=== PATIENT | female | born 1965 | race Caucasian/White ===

== ENCOUNTER 2017-12-10 12:09 | Inpatient (IN) | payer MEDICAID ==
[~2017-12-10] VITALS: Ht 175.3 cm; Wt 86.4 kg
[~2017-12-10 12:09] MED LIST: ASPI81TA49 PO; DIL100C PO; DIPH25CA6 PO; DIVA-81 PO; EST1T PO; MELO-82 PO; METF500T4 PO; ONDA4TAB11 PO; OXYC-150 PO; ZIPR20CA2 PO
[2017-12-10 14:21] LABS: BASOPHILS % (AUTO) 0.1 % (0-1); EOSINOPHILS # (AUTO) 0.2 X10'3 (0-0.9); HEMATOCRIT 35.5 % (35.0-45.0); HEMOGLOBIN 12.5 g/dl (12.0-16.0); LYMPHOCYTES # (AUTO) 2.6 X10'3 (1.1-4.8); LYMPHOCYTES % (AUTO) 13.4 % (21-51); MEAN CORPUSCULAR HGB CONC 35.3 % (33.0-36.5); MEAN CORPUSCULAR VOLUME 93.2 FL (78-98); MEAN PLATELET VOLUME 6.7 FL (7.4-10.4); MONOCYTES # (AUTO) 2.3 X10'3 (0-0.9); MONOCYTES % (AUTO) 11.8 % (2-12); NEUTROPHILS # (AUTO) 14.5 X10'3 (1.8-7.7); NEUTROPHILS % (AUTO) 73.7 % (42-75); PLATELET COUNT 196 X10'3 (140-440); RED CELL DISTRIBUTION WIDTH 13.9 % (11.5-14.5); WHITE BLOOD COUNT 19.7 X10'3 (4.5-11.0)
[2017-12-10 14:36] LABS: ALANINE AMINOTRANSFERASE 31 U/L (12-78); ALBUMIN 2.3 G/DL (3.4-5.0); ALBUMIN/GLOBULIN RATIO 0.4 (1.1-1.5); ALKALINE PHOSPHATASE 106 IU/L (46-116); ANION GAP 9 (8-16); ASPARTATE AMINO TRANSFERASE 32 U/L (10-37); BLOOD UREA NITROGEN 19 MG/DL (7-18); BUN/CREATININE RATIO 21.1 (6.6-38.0); CALCIUM 8.4 MG/DL (8.5-10.1); CHLORIDE 91 MMOL/L (99-107); GLUCOSE 154 MG/DL (70-104); POTASSIUM 4.1 MMOL/L (3.5-5.1); SODIUM 127 MMOL/L (135-145); TOTAL CARBON DIOXIDE 27.3 MMOL/L (24-32); TOTAL PROTEIN 7.5 G/DL (6.4-8.2); eGFR 65 ML/MIN
[2017-12-10 14:37] LABS: CLARITY,URINE SLIGHTLY CLOUDY (Clear); COLOR,URINE AMBER (Yellow); LEUKOCYTE ESTERASE ,URINE NEGATIVE (Neg); OCCULT BLOOD,URINE NEGATIVE (Neg)
[2017-12-10 14:41] LABS: UA COLLECTION TYPE NON-SPECIFIED
[2017-12-10 14:43] LABS: KETONES,URINE UNABLE TO PERFORM mg/dl (Neg); NITRITES, URINE UNABLE TO PERFORM (Neg); UROBILINOGEN,URINE UNABLE TO PREFORM E.U/dL (0.2-1.0)
[2017-12-10 14:45] LABS: BACTERIA,URINE 1+ /HPF (Neg); MUCUS STRANDS MODERATE /LPF (Neg); RBC,URINE NONE SEEN /HPF (0-2); RENAL CELLS, URINE FEW /HPF; SQUAMOUS EPITHELIAL CELL,UR MANY /LPF (FEW); WBC,URINE 0-4 /HPF (0-4)
[2017-12-10 14:47] LABS: URINE AMPHETAMINE SCREEN NEGATIVE (Neg); URINE BARBITUATE SCREEN NEGATIVE (Neg); URINE BENZODIAZEPINES SCREEN POSITIVE (Neg); URINE CANNABINOID SCREEN NEGATIVE (Neg); URINE COCAINE SCREEN NEGATIVE (Neg); URINE METHADONE SCREEN NEGATIVE (Neg); URINE OPIATE SCREEN POSITIVE (Neg); URINE PHENCYCLIDINE SCREEN NEGATIVE (Neg)
[2017-12-10 14:53] LABS: TOTAL CELLS COUNTED 100
[2017-12-10 14:54] LABS: PLATELET ESTIMATE NORMAL; POLYCHROMASIA 1+
[2017-12-10 14:55] LABS: ROULEAUX 1+; SMUDGE CELLS FEW; TARGET CELLS FEW
[2017-12-10 14:56] LABS: TOXIC GRANULATION 1+
[2017-12-10] MEDS ORDERED: normal saline 1000ml 1,000 ML IV SCH ×3 (16:40→21:16)
[2017-12-10] MEDS ORDERED: ondansetron/PF 4mg/2ml inj IV PRN (17:50)
[2017-12-10] MEDS ORDERED: mag hydrox/Alum hydrox/simeth 30ml oral suspension PO PRN ×2 (17:50→21:20)
[2017-12-10] MEDS ORDERED: acetaminophen 325mg tablet PO PRN ×2 (17:50→21:20)
[2017-12-10] MEDS ORDERED: HYDROcodone/acetaminophen 10/325mg tab PO PRN (17:50)
[2017-12-10] MEDS ORDERED: magnesium 2GM in 50ml NS 50 ML IV PRN (17:50)
[2017-12-10] MEDS ORDERED: HYDROcodone/acetaminophen 5mg/325mg tablet PO PRN (17:50)
[2017-12-10] MEDS ORDERED: magnesium Cl slow-release 64mg tablet PO PRN (17:50)
[2017-12-10] MEDS ORDERED: magnesium hydroxide 30ml (MOM) UD suspension PO PRN ×2 (17:50→21:20)
[2017-12-10] MEDS ORDERED: magnesium 4gm in 100ml NS 100 ML IV PRN (17:50)
[2017-12-10] MEDS ORDERED: non-formulary drug (Ondansetron HCl 1 TAB) PO SCH (17:55)
[2017-12-10] MEDS ORDERED: heparin, porcine 5000 units/ml vial SQ SCH (20:00)
[2017-12-10] MEDS ORDERED: metFORMIN 500mg tablet PO SCH (20:00)
[2017-12-10] MEDS ORDERED: phenytoin sod ER 100mg capsule PO SCH (20:00)
[2017-12-10] MEDS ORDERED: divalproex sod 250mg ER (24-hour) tablet PO SCH (20:00)
[2017-12-10] MEDS ORDERED: diphenhydrAMINE 25mg capsule PO SCH (21:00)
[2017-12-10 22:15] LABS: BASOPHILS % (AUTO) 0.2 % (0-1); EOSINOPHILS # (AUTO) 0.3 X10'3 (0-0.9); EOSINOPHILS % (AUTO) 1.6 % (0-6); HEMATOCRIT 34.3 % (35.0-45.0); HEMOGLOBIN 12.2 g/dl (12.0-16.0); LYMPHOCYTES # (AUTO) 2.2 X10'3 (1.1-4.8); LYMPHOCYTES % (AUTO) 11.5 % (21-51); MEAN CORPUSCULAR HEMOGLOBIN 32.6 PG (27.0-31.0); MEAN CORPUSCULAR HGB CONC 35.5 % (33.0-36.5); MEAN CORPUSCULAR VOLUME 91.8 FL (78-98); MEAN PLATELET VOLUME 6.5 FL (7.4-10.4); MONOCYTES # (AUTO) 0.9 X10'3 (0-0.9); MONOCYTES % (AUTO) 4.6 % (2-12); NEUTROPHILS % (AUTO) 82.1 % (42-75); PLATELET COUNT 195 X10'3 (140-440); RED BLOOD COUNT 3.74 X10'6 (4.20-5.60); RED CELL DISTRIBUTION WIDTH 14.3 % (11.5-14.5); WHITE BLOOD COUNT 19.5 X10'3 (4.5-11.0)
[2017-12-10 22:57] LABS: VALPROATE 43.7 UG/ML (50-100)
[2017-12-11 07:00] VITALS: BP 126/104
[2017-12-11] MEDS ORDERED: estradiol 1mg tablet PO SCH (08:00)
[2017-12-11] MEDS ORDERED: ziprasidone 20mg capsule PO SCH (08:00)
[2017-12-11] MEDS ORDERED: aspirin 81mg tablet.DR PO SCH (08:00)
[2017-12-11 08:41] LABS: ALANINE AMINOTRANSFERASE 32 U/L (12-78); ALBUMIN 2.2 G/DL (3.4-5.0); ALBUMIN/GLOBULIN RATIO 0.5 (1.1-1.5); ALKALINE PHOSPHATASE 100 IU/L (46-116); ANION GAP 13 (8-16); ASPARTATE AMINO TRANSFERASE 28 U/L (10-37); BILIRUBIN,TOTAL 2.2 MG/DL (0.1-1.0); BLOOD UREA NITROGEN 17 MG/DL (7-18); BUN/CREATININE RATIO 23.9 (6.6-38.0); CALCIUM 7.8 MG/DL (8.5-10.1); CHLORIDE 91 MMOL/L (99-107); CREATININE 0.71 MG/DL (0.40-0.90); GLUCOSE 139 MG/DL (70-104); POTASSIUM 4.1 MMOL/L (3.5-5.1); SODIUM 126 MMOL/L (135-145); TOTAL CARBON DIOXIDE 21.6 MMOL/L (24-32); eGFR 86 ML/MIN
[2017-12-11 08:46] LABS: BASOPHILS % (AUTO) 0.1 % (0-1); EOSINOPHILS # (AUTO) 0.2 X10'3 (0-0.9); EOSINOPHILS % (AUTO) 0.9 % (0-6); HEMATOCRIT 35.3 % (35.0-45.0); HEMOGLOBIN 12.4 g/dl (12.0-16.0); LYMPHOCYTES # (AUTO) 2.7 X10'3 (1.1-4.8); LYMPHOCYTES % (AUTO) 12.5 % (21-51); MEAN CORPUSCULAR HEMOGLOBIN 32.7 PG (27.0-31.0); MEAN CORPUSCULAR HGB CONC 35.2 % (33.0-36.5); MEAN CORPUSCULAR VOLUME 92.8 FL (78-98); MEAN PLATELET VOLUME 6.8 FL (7.4-10.4); MONOCYTES # (AUTO) 3.3 X10'3 (0-0.9); MONOCYTES % (AUTO) 15.2 % (2-12); NEUTROPHILS # (AUTO) 15.5 X10'3 (1.8-7.7); NEUTROPHILS % (AUTO) 71.3 % (42-75); PLATELET COUNT 231 X10'3 (140-440); RED CELL DISTRIBUTION WIDTH 14.1 % (11.5-14.5); WHITE BLOOD COUNT 21.8 X10'3 (4.5-11.0)
[2017-12-11] MEDS: HYDROcodone/acetaminophen 5mg/325mg tablet PO PRN ×4 (09:09→23:38)
[2017-12-11 09:53] LABS: VALPROATE 28 UG/ML (50-100)
[2017-12-11 09:59] LABS: PHENYTOIN (DILANTIN) 0.5 UG/ML (10.0-20.0)
[2017-12-11 11:09] LABS: BANDS% (MANUAL) 3 % (0-10); EOSINOPHILS % (MANUAL) 1 % (0-6); LYMPHOCYTES % (MANUAL) 8 % (21-51); METAMYLEOCYTES% (MANUAL) 1 % (0-0); MONOCYTES % (MANUAL) 15 % (2-12); MYELOCYTES % (MANUAL) 2 % (0-0); NEUTROPHILS % (MANUAL) 70 % (42-75); NUCLEATED RED BLOOD CELLS 2 /100WBC (0-0); TOTAL CELLS COUNTED 100
[2017-12-11 11:10] LABS: LARGE PLATELETS FEW; PLATELET ESTIMATE NORMAL; POLYCHROMASIA 1+
[2017-12-11 11:11] LABS: TOXIC GRANULATION 1+
[2017-12-11] MEDS ORDERED: normal saline 1000ml 1,000 ML IV ONE (11:55)
[2017-12-11] MEDS: metFORMIN 500mg tablet PO SCH ×2 (12:49→18:34)
[2017-12-11] MEDS: phenytoin sod ER 100mg capsule PO SCH ×2 (20:00→20:50)
[2017-12-11] MEDS: nicotine 14mg patch - 24hr TD SCH (20:12)
[2017-12-11] MEDS: divalproex sod 250mg ER (24-hour) tablet PO SCH (20:40)
[2017-12-11] MEDS ORDERED: estradiol 1mg tablet PO ONE (20:40)
[2017-12-11 20:50] VITALS: BP 144/80
[2017-12-11 23:30] VITALS: BP 140/88
[2017-12-11] MEDS: ondansetron/PF 4mg/2ml inj IV PRN (23:40)
[2017-12-12] MEDS: HYDROcodone/acetaminophen 5mg/325mg tablet PO PRN ×4 (04:08→16:54)
[2017-12-12 05:33] LABS: BASOPHILS % (AUTO) 0.2 % (0-1); EOSINOPHILS # (AUTO) 0.4 X10'3 (0-0.9); EOSINOPHILS % (AUTO) 1.8 % (0-6); HEMATOCRIT 34.2 % (35.0-45.0); HEMOGLOBIN 12.2 g/dl (12.0-16.0); LYMPHOCYTES # (AUTO) 2.5 X10'3 (1.1-4.8); LYMPHOCYTES % (AUTO) 11.5 % (21-51); MEAN CORPUSCULAR HEMOGLOBIN 33.2 PG (27.0-31.0); MEAN CORPUSCULAR HGB CONC 35.7 % (33.0-36.5); MEAN CORPUSCULAR VOLUME 92.9 FL (78-98); MEAN PLATELET VOLUME 6.5 FL (7.4-10.4); MONOCYTES % (AUTO) 13.5 % (2-12); NEUTROPHILS # (AUTO) 16.1 X10'3 (1.8-7.7); PLATELET COUNT 215 X10'3 (140-440); RED BLOOD COUNT 3.68 X10'6 (4.20-5.60); RED CELL DISTRIBUTION WIDTH 13.9 % (11.5-14.5); WHITE BLOOD COUNT 22.1 X10'3 (4.5-11.0)
[2017-12-12 06:01] LABS: ALANINE AMINOTRANSFERASE 27 U/L (12-78); ALBUMIN/GLOBULIN RATIO 0.4 (1.1-1.5); ALKALINE PHOSPHATASE 110 IU/L (46-116); ANION GAP 10 (8-16); ASPARTATE AMINO TRANSFERASE 35 U/L (10-37); BILIRUBIN,TOTAL 1.9 MG/DL (0.1-1.0); BLOOD UREA NITROGEN 14 MG/DL (7-18); CALCIUM 7.7 MG/DL (8.5-10.1); CHLORIDE 91 MMOL/L (99-107); GLUCOSE 151 MG/DL (70-104); POTASSIUM 4.1 MMOL/L (3.5-5.1); SODIUM 126 MMOL/L (135-145); TOTAL CARBON DIOXIDE 24.7 MMOL/L (24-32); TOTAL PROTEIN 6.7 G/DL (6.4-8.2); eGFR 88 ML/MIN
[2017-12-12 06:26] LABS: PHENYTOIN (DILANTIN) 1.2 UG/ML (10.0-20.0); VALPROATE 21 UG/ML (50-100)
[2017-12-12 07:36] VITALS: BP 129/77
[2017-12-12] MEDS: phenytoin sod ER 100mg capsule PO SCH (07:55)
[2017-12-12] MEDS: metFORMIN 500mg tablet PO SCH ×3 (07:56→16:54)
[2017-12-12] MEDS: divalproex sod 250mg ER (24-hour) tablet PO SCH (07:57)
[2017-12-12] MEDS: nicotine 14mg patch - 24hr TD SCH (07:57)
[2017-12-12] MEDS: ondansetron/PF 4mg/2ml inj IV PRN (08:07)
[2017-12-12] MEDS ORDERED: estradiol 1mg tablet PO SCH (09:20)
[2017-12-12] MEDS: phenytoin sod inj 1,000 MG in normal saline 100ml IV soln 80 ML IV ONE ×2 (09:50→10:07)
[2017-12-12 10:56] VITALS: BP 135/56
[2017-12-12] MEDS ORDERED: DIVA500T7 PO (11:23)
[2017-12-12] MEDS ORDERED: KEP500T PO (11:23)
[2017-12-12] MEDS ORDERED: PHEN100C12 PO (11:23)
[2017-12-12] MEDS ORDERED: MELO7.5T12 PO (11:23)
[2017-12-12] MEDS ORDERED: CALC0.253 PO (11:23)
[2017-12-12] MEDS ORDERED: DIPH25CA83 PO (11:23)
[2017-12-12] MEDS ORDERED: FENO67CA PO (11:23)
[2017-12-12] MEDS ORDERED: METF10002 PO (11:23)
[2017-12-12] MEDS ORDERED: ASPI-611 PO (11:23)
[2017-12-12] MEDS ORDERED: METH500T6 PO (11:23)
[2017-12-12] MEDS: phenytoin 100mg/4ml ***ORAL SUSPENSION PO SCH ×2 (11:55→14:05)
[2017-12-12 12:24] LABS: BANDS% (MANUAL) 7 % (0-10); EOSINOPHILS % (MANUAL) 1 % (0-6); LYMPHOCYTES % (MANUAL) 11 % (21-51); METAMYLEOCYTES% (MANUAL) 4 % (0-0); MONOCYTES % (MANUAL) 19 % (2-12); MYELOCYTES % (MANUAL) 3 % (0-0); NEUTROPHILS % (MANUAL) 55 % (42-75)
[2017-12-12 12:25] LABS: LARGE PLATELETS FEW; PLATELET ESTIMATE NORMAL; SMUDGE CELLS 2+; TOXIC GRANULATION 2+
[2017-12-12 12:26] LABS: NUCLEATED RED BLOOD CELLS 2 /100WBC (0-0); POLYCHROMASIA 1+; TOXIC VACUOLATION 1+
[2017-12-12 12:27] LABS: GIANT PLATELET FEW
[2017-12-12 12:28] LABS: TOTAL CELLS COUNTED 100
[2017-12-12] MEDS ORDERED: phenytoin sod ER 100mg capsule PO SCH ×2 (13:00→21:00)
[2017-12-12] MEDS ORDERED: phenytoin 100mg/4ml ***ORAL SUSPENSION PO SCH (16:10)
[2017-12-12] MEDS ORDERED: NUT.TX.GLUC.INTOLER,LAC-FR,REG (BOOST GLUCOSE CONTROL) 237 ML PO SCH (18:00)
[2017-12-12] MEDS ORDERED: phenytoin sod 50mg/ml 2ml vial IV ONE (21:00)
[2017-12-13] MEDS ORDERED: phenytoin sod ER 100mg capsule PO SCH (21:00)
== END 2017-12-12 17:16 | disposition home or self-care (01) | DRG 384 ==
LOC: ER 12:12 → ED HOLD 17:46 → OBSVTOIN 21:16 → SUR 3N 12-11 07:29
PROVIDERS: ADMIT Family Medicine; ATTEND Internal Medicine
DX: S30.1XXA Contusion of abdominal wall, initial encounter (principal); K76.89 Other specified diseases of liver; E66.01 Morbid (severe) obesity due to excess calories; I10 Essential (primary) hypertension; E11.9 Type 2 diabetes mellitus without complications; D72.829 Elevated white blood cell count, unspecified; F11.10 Opioid abuse, uncomplicated; J44.9 Chronic obstructive pulmonary disease, unspecified; F41.0 Panic disorder [episodic paroxysmal anxiety]; G47.33 Obstructive sleep apnea (adult) (pediatric); E78.00 Pure hypercholesterolemia, unspecified; W18.2XXA Fall in (into) shower or empty bathtub, initial encounter; F31.9 Bipolar disorder, unspecified; B19.20 Unspecified viral hepatitis C without hepatic coma; F41.9 Anxiety disorder, unspecified; G89.29 Other chronic pain; M54.9 Dorsalgia, unspecified; Z88.0 Allergy status to penicillin; Z88.1 Allergy status to other antibiotic agents; Y93.89 Activity, other specified; Y99.8 Other external cause status; Z79.899 Other long term (current) drug therapy; Z79.82 Long term (current) use of aspirin; Z90.710 Acquired absence of both cervix and uterus; Z90.49 Acquired absence of other specified parts of digestive tract; Z68.28 Body mass index [BMI] 28.0-28.9, adult; Y92.098 Other place in other non-institutional residence as the place of occurrence of the external cause
CPT/HCPCS: 36415; 70450; 72131; 74018; 74176; 80053; 80164; 80185; 80305; 81001; 82948; 83605; 85025; 87040; 87070; 96360; 97530; 99285; G0378; J1165; J2405; J7030

== ENCOUNTER 2017-12-22 16:44 | Inpatient (IN) | payer MEDICAID ==
[~2017-12-22] VITALS: Ht 175.3 cm; Wt 83.8 kg
[~2017-12-22 16:44] MED LIST changes: +ASPI-611 PO; -ASPI81TA49 PO; +CALC0.253 PO; -DIL100C PO; -DIPH25CA6 PO; +DIPH25CA83 PO; -DIVA-81 PO; +DIVA500T7 PO; +FENO67CA PO; +KEP500T PO; -MELO-82 PO; +METF10002 PO; -METF500T4 PO; +METH500T6 PO; -ONDA4TAB11 PO; -OXYC-150 PO; +PHEN100C12 PO
[2017-12-22] MEDS ORDERED: normal saline 1000ML IV soln IV ONE (17:35)
[2017-12-22 17:40] LABS: BASOPHILS % (AUTO) 0.1 % (0-1); EOSINOPHILS # (AUTO) 0.1 X10'3 (0-0.9); EOSINOPHILS % (AUTO) 0.7 % (0-6); HEMATOCRIT 33.6 % (35.0-45.0); HEMOGLOBIN 11.4 g/dl (12.0-16.0); LYMPHOCYTES # (AUTO) 0.7 X10'3 (1.1-4.8); LYMPHOCYTES % (AUTO) 5.3 % (21-51); MEAN CORPUSCULAR HEMOGLOBIN 32.3 PG (27.0-31.0); MEAN CORPUSCULAR VOLUME 94.9 FL (78-98); MEAN PLATELET VOLUME 6.1 FL (7.4-10.4); MONOCYTES # (AUTO) 1.3 X10'3 (0-0.9); MONOCYTES % (AUTO) 10.3 % (2-12); NEUTROPHILS # (AUTO) 10.7 X10'3 (1.8-7.7); NEUTROPHILS % (AUTO) 83.6 % (42-75); PLATELET COUNT 216 X10'3 (140-440); RED BLOOD COUNT 3.54 X10'6 (4.20-5.60); RED CELL DISTRIBUTION WIDTH 14.9 % (11.5-14.5); WHITE BLOOD COUNT 12.8 X10'3 (4.5-11.0)
[2017-12-22] MEDS ORDERED: iohexol 300mg/ml 100ml inj. ONE (17:54)
[2017-12-22 17:56] LABS: ANISOCYTOSIS 1+; PLATELET ESTIMATE NORMAL; POLYCHROMASIA 1+; TOTAL CELLS COUNTED 100
[2017-12-22 18:03] LABS: ALANINE AMINOTRANSFERASE 26 U/L (12-78); ALBUMIN 1.9 G/DL (3.4-5.0); ALBUMIN/GLOBULIN RATIO 0.3 (1.1-1.5); ALKALINE PHOSPHATASE 161 IU/L (46-116); ANION GAP 10 (8-16); ASPARTATE AMINO TRANSFERASE 30 U/L (10-37); BILIRUBIN,TOTAL 1.1 MG/DL (0.1-1.0); BLOOD UREA NITROGEN 10 MG/DL (7-18); BUN/CREATININE RATIO 11.1 (6.6-38.0); CALCIUM 8.1 MG/DL (8.5-10.1); CHLORIDE 90 MMOL/L (99-107); GLUCOSE 147 MG/DL (70-104); POTASSIUM 4.2 MMOL/L (3.5-5.1); SODIUM 125 MMOL/L (135-145); TOTAL CARBON DIOXIDE 24.7 MMOL/L (24-32); TOTAL PROTEIN 7.5 G/DL (6.4-8.2); eGFR 65 ML/MIN
[2017-12-22 18:09] LABS: INR 1.2 INR; PARTIAL THROMBOPLASTIN TIME 29 SECONDS (22-32); PROTHROMBIN TIME 12.2 SECONDS (9.0-12.0)
[2017-12-22] MEDS ORDERED: metroNIDAZOLE-Flagyl 500mg/NS 100 ML IV STA (18:15)
[2017-12-22] MEDS: ciprofloxacin lact 400MG/200ML 200 ML IV SCH ×2 (19:28→20:00)
[2017-12-22 19:44] LABS: CLARITY,URINE CLEAR (Clear); COLOR,URINE YELLOW (Yellow); GLUCOSE, URINE NEGATIVE (Neg); KETONES,URINE NEGATIVE (Neg); LEUKOCYTE ESTERASE ,URINE NEGATIVE (Neg); NITRITES, URINE NEGATIVE (Neg); OCCULT BLOOD,URINE NEGATIVE (Neg); PH,URINE 5.5 (4.8-8.0); PROTEIN,URINE NEGATIVE (Neg)
[2017-12-22 19:58] LABS: UA COLLECTION TYPE CLN CATCH MIDSTREAM
[2017-12-22] MEDS ORDERED: sevoflurane 250ml liquid IH ONE (20:58)
[2017-12-22] MEDS ORDERED: midazolam 2 mg/2 ml injection ONE (21:00)
[2017-12-22] MEDS ORDERED: fentaNYL /PF 50mcg/ml 5ml ampule ONE (21:01)
[2017-12-22 22:45] VITALS: BP 132/58
[2017-12-22 23:00] VITALS: BP 164/68
[2017-12-22] MEDS ORDERED: rocuronium 10mg/ml inj IV ONE (23:08)
[2017-12-22] MEDS ORDERED: propofol inj 20 ML IV ONE (23:08)
[2017-12-22] MEDS ORDERED: LIDOcaine 2% (20mg/ml) 5ml vial ONE (23:08)
[2017-12-22 23:15] VITALS: BP 124/54
[2017-12-22 23:30] VITALS: BP 130/60
[2017-12-23] VITALS (30 sets, daily range): BP systolic 83–124; BP diastolic 47–65
[2017-12-23 00:12] LABS: BASOPHILS % (AUTO) 0 % (0-1); EOSINOPHILS # (AUTO) 0.1 X10'3 (0-0.9); HEMATOCRIT 23.8 % (35.0-45.0); HEMOGLOBIN 8.2 g/dl (12.0-16.0); LYMPHOCYTES # (AUTO) 1.1 X10'3 (1.1-4.8); LYMPHOCYTES % (AUTO) 8.9 % (21-51); MEAN CORPUSCULAR HEMOGLOBIN 32.1 PG (27.0-31.0); MEAN CORPUSCULAR HGB CONC 34.3 % (33.0-36.5); MEAN CORPUSCULAR VOLUME 93.5 FL (78-98); MEAN PLATELET VOLUME 6.2 FL (7.4-10.4); MONOCYTES # (AUTO) 1.6 X10'3 (0-0.9); MONOCYTES % (AUTO) 12.6 % (2-12); NEUTROPHILS # (AUTO) 9.8 X10'3 (1.8-7.7); NEUTROPHILS % (AUTO) 77.5 % (42-75); PLATELET COUNT 173 X10'3 (140-440); RED BLOOD COUNT 2.55 X10'6 (4.20-5.60); RED CELL DISTRIBUTION WIDTH 15.5 % (11.5-14.5); WHITE BLOOD COUNT 12.7 X10'3 (4.5-11.0)
[2017-12-23 00:30] LABS: ALANINE AMINOTRANSFERASE 21 U/L (12-78); ALBUMIN 1.6 G/DL (3.4-5.0); ALBUMIN/GLOBULIN RATIO 0.4 (1.1-1.5); ALKALINE PHOSPHATASE 109 IU/L (46-116); ANION GAP 9 (8-16); ASPARTATE AMINO TRANSFERASE 22 U/L (10-37); BILIRUBIN,TOTAL 0.9 MG/DL (0.1-1.0); BLOOD UREA NITROGEN 8 MG/DL (7-18); BUN/CREATININE RATIO 11.9 (6.6-38.0); CHLORIDE 98 MMOL/L (99-107); CREATININE 0.67 MG/DL (0.40-0.90); POTASSIUM 4.7 MMOL/L (3.5-5.1); SODIUM 129 MMOL/L (135-145); TOTAL CARBON DIOXIDE 21.7 MMOL/L (24-32); TOTAL PROTEIN 5.8 G/DL (6.4-8.2); eGFR > 90 ML/MIN
[2017-12-23 00:37] LABS: GLUCOSE 92 MG/DL (70-104)
[2017-12-23 01:06] LABS: ABG BASE EXCESS -2.9 mmol/L (-2.0-3.0); ABG HCO3 21.6 mmol/L (22.0-26.0); ABG OXYGEN SATURATION 99.4 % (95-98); ABG PCO2 (T) 36.4 mmHg (32.0-45.0); ABG PH (T) 7.393 (7.350-7.450); ABG PO2 (T) 297.1 mmHg (83-108); FCOHb 0.5 % (0.5-1.5); FMetHb 0.2 % (0.3-1.12); FO2Hb 98.7 % (94-100); MINUTE VOLUME 10 L/min; PATIENT TEMPERATURE 37.5; PEEP 5 cm H2O; RESPIRATORY RATE 16 b/min; RESPIRATORY RATE (OBSERVED) 16 b/min; TIDAL VOLUME 600 mL; TOTAL HEMOGLOBIN 8.5 G/dl (12.0-16.0)
[2017-12-23 03:14] LABS: BASOPHILS % (AUTO) 0.1 % (0-1); EOSINOPHILS # (AUTO) 0.1 X10'3 (0-0.9); EOSINOPHILS % (AUTO) 0.5 % (0-6); HEMATOCRIT 24.9 % (35.0-45.0); HEMOGLOBIN 8.4 g/dl (12.0-16.0); LYMPHOCYTES # (AUTO) 1.1 X10'3 (1.1-4.8); LYMPHOCYTES % (AUTO) 8.1 % (21-51); MEAN CORPUSCULAR HEMOGLOBIN 32.3 PG (27.0-31.0); MEAN CORPUSCULAR HGB CONC 33.9 % (33.0-36.5); MEAN CORPUSCULAR VOLUME 95.2 FL (78-98); MEAN PLATELET VOLUME 6.1 FL (7.4-10.4); MONOCYTES # (AUTO) 1.7 X10'3 (0-0.9); MONOCYTES % (AUTO) 13.1 % (2-12); NEUTROPHILS # (AUTO) 10.4 X10'3 (1.8-7.7); NEUTROPHILS % (AUTO) 78.2 % (42-75); PLATELET COUNT 184 X10'3 (140-440); RED BLOOD COUNT 2.61 X10'6 (4.20-5.60); RED CELL DISTRIBUTION WIDTH 15.4 % (11.5-14.5); WHITE BLOOD COUNT 13.3 X10'3 (4.5-11.0)
[2017-12-23 03:31] LABS: ALANINE AMINOTRANSFERASE 20 U/L (12-78); ALBUMIN 1.7 G/DL (3.4-5.0); ALBUMIN/GLOBULIN RATIO 0.4 (1.1-1.5); ALKALINE PHOSPHATASE 110 IU/L (46-116); ANION GAP 8 (8-16); ASPARTATE AMINO TRANSFERASE 22 U/L (10-37); BILIRUBIN,TOTAL 1.1 MG/DL (0.1-1.0); BLOOD UREA NITROGEN 10 MG/DL (7-18); CALCIUM 7.1 MG/DL (8.5-10.1); CHLORIDE 98 MMOL/L (99-107); CREATININE 0.77 MG/DL (0.40-0.90); MAGNESIUM 1.9 MG/DL (1.5-2.4); PHOSPHORUS 4.6 MG/DL (2.3-4.5); POTASSIUM 5.1 MMOL/L (3.5-5.1); SODIUM 128 MMOL/L (135-145); TOTAL CARBON DIOXIDE 22.5 MMOL/L (24-32); TOTAL PROTEIN 5.8 G/DL (6.4-8.2); eGFR 78 ML/MIN
[2017-12-23 03:35] LABS: GLUCOSE 93 MG/DL (70-104)
[2017-12-23 03:50] LABS: ABG BASE EXCESS -2.9 mmol/L (-2.0-3.0); ABG HCO3 21.3 mmol/L (22.0-26.0); ABG OXYGEN SATURATION 98.4 % (95-98); ABG PCO2 (T) 34.8 mmHg (32.0-45.0); ABG PH (T) 7.405 (7.350-7.450); ABG PO2 (T) 130.8 mmHg (83-108); FCOHb 0.5 % (0.5-1.5); FMetHb 0.2 % (0.3-1.12); FO2Hb 97.7 % (94-100); MINUTE VOLUME 10 L/min; PATIENT TEMPERATURE 37.2; PEEP 5 cm H2O; RESPIRATORY RATE 16 b/min; RESPIRATORY RATE (OBSERVED) 16 b/min; TIDAL VOLUME 600 mL; TOTAL HEMOGLOBIN 9.6 G/dl (12.0-16.0)
[2017-12-23] MEDS ORDERED: albumin (Human) 5% 250 ML IV solution IV STA (03:59)
[2017-12-23] MEDS: normal saline 1000ml 1,000 ML IV SCH ×2 (04:13→12:46)
[2017-12-23] MEDS: midazolam 100mg in NS 100ml 100 ML IV PRN (04:13)
[2017-12-23] MEDS: FENTANYL-0.9 % NACL/PF 100 ML IV PRN ×2 (04:13→07:38)
[2017-12-23] MEDS: vancomycin/NS 1 GM ADD-VANTAGE 250 ML IV SCH ×2 (06:07→07:50)
[2017-12-23] MEDS: aspirin 81mg tablet.DR PO SCH (07:51)
[2017-12-23] MEDS: estradiol 1mg tablet PO SCH (07:51)
[2017-12-23] MEDS: divalproex sodium 500mg tablet.DR PO SCH ×2 (07:51→22:00)
[2017-12-23] MEDS: levetiracetam 250mg tablet PO SCH ×2 (07:51→22:00)
[2017-12-23] MEDS: ziprasidone 20mg capsule PO SCH (07:51)
[2017-12-23] MEDS: calcitriol 0.25mcg capsule PO SCH (07:52)
[2017-12-23] MEDS: phenytoin sod ER 100mg capsule PO SCH (07:52)
[2017-12-23] MEDS: fenofibrate 48mg tablet PO SCH (07:52)
[2017-12-23] MEDS ORDERED: FENOFIBRATE MICRONIZED 67 MG PO SCH (08:00)
[2017-12-23] MEDS: ciprofloxacin lact 400MG/200ML 200 ML IV SCH ×2 (09:24→21:58)
[2017-12-23] MEDS: vancomycin inj 1,250 MG in normal saline 250ml IV soln 250 ML IV SCH ×2 (13:32→22:06)
[2017-12-23] MEDS: lactobacillus rhamnosus 10,000 MMU CELLS/CAPSULE PO SCH (22:00)
[2017-12-23] MEDS: diphenhydrAMINE 25mg capsule PO SCH (22:01)
[2017-12-24] VITALS (34 sets, daily range): BP systolic 74–109; BP diastolic 41–62
[2017-12-24] MEDS: midazolam 100mg in NS 100ml 100 ML IV PRN (02:08)
[2017-12-24] MEDS: mineral oil/petrolatum ophthal oint EACHEYE SCH ×4 (02:24→20:00)
[2017-12-24 02:32] LABS: BASOPHILS % (AUTO) 0.2 % (0-1); EOSINOPHILS # (AUTO) 0.1 X10'3 (0-0.9); EOSINOPHILS % (AUTO) 1.1 % (0-6); HEMATOCRIT 26.9 % (35.0-45.0); HEMOGLOBIN 9.2 g/dl (12.0-16.0); LYMPHOCYTES # (AUTO) 1.2 X10'3 (1.1-4.8); LYMPHOCYTES % (AUTO) 11.9 % (21-51); MEAN CORPUSCULAR HEMOGLOBIN 31.8 PG (27.0-31.0); MEAN CORPUSCULAR HGB CONC 34.1 % (33.0-36.5); MEAN CORPUSCULAR VOLUME 93.4 FL (78-98); MONOCYTES # (AUTO) 1.4 X10'3 (0-0.9); MONOCYTES % (AUTO) 13.6 % (2-12); NEUTROPHILS # (AUTO) 7.5 X10'3 (1.8-7.7); NEUTROPHILS % (AUTO) 73.2 % (42-75); PLATELET COUNT 189 X10'3 (140-440); RED BLOOD COUNT 2.88 X10'6 (4.20-5.60); RED CELL DISTRIBUTION WIDTH 16.3 % (11.5-14.5); WHITE BLOOD COUNT 10.2 X10'3 (4.5-11.0)
[2017-12-24 02:50] LABS: ALANINE AMINOTRANSFERASE 20 U/L (12-78); ALBUMIN 1.6 G/DL (3.4-5.0); ALBUMIN/GLOBULIN RATIO 0.4 (1.1-1.5); ALKALINE PHOSPHATASE 99 IU/L (46-116); ANION GAP 5 (8-16); ASPARTATE AMINO TRANSFERASE 39 U/L (10-37); BILIRUBIN,TOTAL 0.9 MG/DL (0.1-1.0); BLOOD UREA NITROGEN 17 MG/DL (7-18); BUN/CREATININE RATIO 25.4 (6.6-38.0); CALCIUM 7.2 MG/DL (8.5-10.1); CHLORIDE 102 MMOL/L (99-107); CREATININE 0.67 MG/DL (0.40-0.90); MAGNESIUM 2.1 MG/DL (1.5-2.4); POTASSIUM 5.3 MMOL/L (3.5-5.1); SODIUM 131 MMOL/L (135-145); TOTAL CARBON DIOXIDE 23.9 MMOL/L (24-32); TOTAL PROTEIN 5.9 G/DL (6.4-8.2); eGFR > 90 ML/MIN
[2017-12-24] MEDS: morphine/NS 100mg/100ml bag 100 ML IV SCH ×2 (02:52→11:15)
[2017-12-24 03:47] LABS: GLUCOSE 84 MG/DL (70-104)
[2017-12-24 03:48] LABS: VANCOMYCIN,TROUGH 38.9 UG/ML (6.0-14.0)
[2017-12-24 04:30] LABS: ABG BASE EXCESS -3.7 mmol/L (-2.0-3.0); ABG HCO3 22.5 mmol/L (22.0-26.0); ABG PCO2 (T) 47.2 mmHg (32.0-45.0); ABG PH (T) 7.299 (7.350-7.450); ABG PO2 (T) 90.5 mmHg (83-108); FCOHb 0.3 % (0.5-1.5); FMetHb 0.3 % (0.3-1.12); FO2Hb 95.4 % (94-100); PATIENT TEMPERATURE 37.5; PEEP 5 cm H2O; RESPIRATORY RATE 16 b/min; TIDAL VOLUME 350 mL; TOTAL HEMOGLOBIN 10.3 G/dl (12.0-16.0)
[2017-12-24] MEDS: normal saline 1000ml 1,000 ML IV SCH ×3 (05:17→12:12)
[2017-12-24] MEDS ORDERED: VANCOMYCIN LEVEL IV ONE (05:30)
[2017-12-24] MEDS: vancomycin inj 1,250 MG in normal saline 250ml IV soln 250 ML IV SCH ×3 (06:09→22:36)
[2017-12-24] MEDS: levetiracetam 250mg tablet PO SCH ×2 (07:24→21:04)
[2017-12-24] MEDS: divalproex sodium 500mg tablet.DR PO SCH ×2 (07:25→21:03)
[2017-12-24] MEDS: phenytoin sod ER 100mg capsule PO SCH (07:25)
[2017-12-24] MEDS: ciprofloxacin lact 400MG/200ML 200 ML IV SCH ×2 (07:26→21:03)
[2017-12-24] MEDS: calcitriol 0.25mcg capsule PO SCH (07:37)
[2017-12-24] MEDS: fenofibrate 48mg tablet PO SCH (07:38)
[2017-12-24] MEDS: aspirin 81mg tablet.DR PO SCH (07:38)
[2017-12-24] MEDS: ziprasidone 20mg capsule PO SCH (07:38)
[2017-12-24] MEDS: estradiol 1mg tablet PO SCH (07:38)
[2017-12-24] MEDS: lactobacillus rhamnosus 10,000 MMU CELLS/CAPSULE PO SCH ×2 (07:38→21:03)
[2017-12-24] MEDS ORDERED: rocuronium 10mg/ml inj IV ONE (09:00)
[2017-12-24] MEDS ORDERED: sevoflurane 250ml liquid IH ONE (09:10)
[2017-12-24 11:11] LABS: BASOPHILS # (AUTO) 0.1 X10'3 (0-0.2); BASOPHILS % (AUTO) 0.5 % (0-1); EOSINOPHILS # (AUTO) 0.2 X10'3 (0-0.9); EOSINOPHILS % (AUTO) 1.5 % (0-6); HEMATOCRIT 29.2 % (35.0-45.0); LYMPHOCYTES # (AUTO) 1.5 X10'3 (1.1-4.8); MEAN CORPUSCULAR HEMOGLOBIN 31.3 PG (27.0-31.0); MEAN CORPUSCULAR HGB CONC 34.2 % (33.0-36.5); MEAN CORPUSCULAR VOLUME 91.7 FL (78-98); MONOCYTES # (AUTO) 1.6 X10'3 (0-0.9); PLATELET COUNT 202 X10'3 (140-440); RED BLOOD COUNT 3.19 X10'6 (4.20-5.60); RED CELL DISTRIBUTION WIDTH 16.2 % (11.5-14.5); WHITE BLOOD COUNT 12.4 X10'3 (4.5-11.0)
[2017-12-24 11:20] LABS: INR 1.4 INR; PROTHROMBIN TIME 14.7 SECONDS (9.0-12.0)
[2017-12-24 11:26] LABS: ALANINE AMINOTRANSFERASE 19 U/L (12-78); ALBUMIN 1.3 G/DL (3.4-5.0); ALBUMIN/GLOBULIN RATIO 0.4 (1.1-1.5); ALKALINE PHOSPHATASE 80 IU/L (46-116); ANION GAP 7 (8-16); ASPARTATE AMINO TRANSFERASE 48 U/L (10-37); BILIRUBIN,TOTAL 0.9 MG/DL (0.1-1.0); BLOOD UREA NITROGEN 16 MG/DL (7-18); BUN/CREATININE RATIO 27.1 (6.6-38.0); CALCIUM 6.2 MG/DL (8.5-10.1); CHLORIDE 107 MMOL/L (99-107); CREATININE 0.59 MG/DL (0.40-0.90); GLUCOSE 74 MG/DL (70-104); POTASSIUM 5.2 MMOL/L (3.5-5.1); SODIUM 134 MMOL/L (135-145); TOTAL CARBON DIOXIDE 20.3 MMOL/L (24-32); TOTAL PROTEIN 4.6 G/DL (6.4-8.2); eGFR > 90 ML/MIN
[2017-12-24] MEDS ORDERED: normal saline 1000ml 1,000 ML IV ONE ×3 (14:35→16:40)
[2017-12-24] MEDS ORDERED: NORepinephrine 8mg/ 250ml NS 250 ML IV SCH (19:10)
[2017-12-24] MEDS ORDERED: albumin (human) 25% 100 ML IV solution IV ONE (19:15)
[2017-12-24] MEDS ORDERED: dextrose 50%-water 50ml dispensing syringe IV ONE (20:35)
[2017-12-24] MEDS: diphenhydrAMINE 25mg capsule PO SCH (21:03)
[2017-12-24 21:24] LABS: HEMATOCRIT 29.2 % (35.0-45.0); HEMOGLOBIN 9.9 g/dl (12.0-16.0); MEAN CORPUSCULAR HEMOGLOBIN 31.5 PG (27.0-31.0); MEAN CORPUSCULAR HGB CONC 33.9 % (33.0-36.5); MEAN CORPUSCULAR VOLUME 92.8 FL (78-98); PLATELET COUNT 371 X10'3 (140-440); RED BLOOD COUNT 3.15 X10'6 (4.20-5.60); RED CELL DISTRIBUTION WIDTH 16.8 % (11.5-14.5)
[2017-12-24 21:39] LABS: WHITE BLOOD COUNT 25.1 X10'3 (4.5-11.0)
[2017-12-24] MEDS: linezolid 600mg/300ml PREMIX 300 ML IV SCH (23:00)
[2017-12-25] VITALS (23 sets, daily range): BP systolic 92–111; BP diastolic 41–58
[2017-12-25] MEDS ORDERED: linezolid 600mg/300ml PREMIX 300 ML IV ONE (00:25)
[2017-12-25] MEDS: mineral oil/petrolatum ophthal oint EACHEYE SCH ×4 (02:00→21:08)
[2017-12-25 02:33] LABS: BASOPHILS % (AUTO) 0 % (0-1); EOSINOPHILS % (AUTO) 0 % (0-6); HEMATOCRIT 28.4 % (35.0-45.0); HEMOGLOBIN 9.7 g/dl (12.0-16.0); LYMPHOCYTES # (AUTO) 1.9 X10'3 (1.1-4.8); LYMPHOCYTES % (AUTO) 8.4 % (21-51); MEAN CORPUSCULAR HEMOGLOBIN 31.5 PG (27.0-31.0); MEAN CORPUSCULAR HGB CONC 34.3 % (33.0-36.5); MEAN CORPUSCULAR VOLUME 91.8 FL (78-98); MEAN PLATELET VOLUME 5.8 FL (7.4-10.4); MONOCYTES # (AUTO) 2.8 X10'3 (0-0.9); MONOCYTES % (AUTO) 12.4 % (2-12); NEUTROPHILS # (AUTO) 17.7 X10'3 (1.8-7.7); NEUTROPHILS % (AUTO) 79.2 % (42-75); PLATELET COUNT 319 X10'3 (140-440); RED BLOOD COUNT 3.09 X10'6 (4.20-5.60); WHITE BLOOD COUNT 22.4 X10'3 (4.5-11.0)
[2017-12-25 02:50] LABS: ALANINE AMINOTRANSFERASE 90 U/L (12-78); ALBUMIN 1.7 G/DL (3.4-5.0); ALBUMIN/GLOBULIN RATIO 0.5 (1.1-1.5); ALKALINE PHOSPHATASE 98 IU/L (46-116); ANION GAP 9 (8-16); ASPARTATE AMINO TRANSFERASE 474 U/L (10-37); BILIRUBIN,TOTAL 1.8 MG/DL (0.1-1.0); BLOOD UREA NITROGEN 26 MG/DL (7-18); BUN/CREATININE RATIO 22.4 (6.6-38.0); CALCIUM 6.7 MG/DL (8.5-10.1); CHLORIDE 105 MMOL/L (99-107); CREATININE 1.16 MG/DL (0.40-0.90); GLUCOSE 188 MG/DL (70-104); MAGNESIUM 2.2 MG/DL (1.5-2.4); PHOSPHORUS 3.4 MG/DL (2.3-4.5); SODIUM 133 MMOL/L (135-145); TOTAL CARBON DIOXIDE 18.8 MMOL/L (24-32); TOTAL PROTEIN 5.2 G/DL (6.4-8.2); eGFR 49 ML/MIN
[2017-12-25 02:54] LABS: POTASSIUM 6.2 MMOL/L (3.5-5.1)
[2017-12-25 03:35] LABS: ANISOCYTOSIS 1+; PLATELET ESTIMATE NORMAL; TOTAL CELLS COUNTED 100
[2017-12-25 03:43] LABS: ALBUMIN 1.7 G/DL (3.4-5.0); ANION GAP 11 (8-16); BLOOD UREA NITROGEN 26 MG/DL (7-18); BUN/CREATININE RATIO 21.7 (6.6-38.0); CALCIUM 6.9 MG/DL (8.5-10.1); CHLORIDE 105 MMOL/L (99-107); GLUCOSE 188 MG/DL (70-104); SODIUM 133 MMOL/L (135-145); TOTAL CARBON DIOXIDE 17.4 MMOL/L (24-32); eGFR 47 ML/MIN
[2017-12-25 03:46] LABS: ABG BASE EXCESS -8.8 mmol/L (-2.0-3.0); ABG OXYGEN SATURATION 93.3 % (95-98); ABG PCO2 (T) 31.4 mmHg (32.0-45.0); ABG PH (T) 7.327 (7.350-7.450); ABG PO2 (T) 72.1 mmHg (83-108); FCOHb 0.3 % (0.5-1.5); FMetHb 0.2 % (0.3-1.12); FO2Hb 92.8 % (94-100); MINUTE VOLUME 10 L/min; PATIENT TEMPERATURE 37.5; PEEP 5 cm H2O; RESPIRATORY RATE 20 b/min; RESPIRATORY RATE (OBSERVED) 20 b/min; TIDAL VOLUME 350 mL; TOTAL HEMOGLOBIN 10.5 G/dl (12.0-16.0)
[2017-12-25 04:15] LABS: POTASSIUM 6.2 MMOL/L (3.5-5.1)
[2017-12-25] MEDS ORDERED: dextrose 50%-water 50ml dispensing syringe IV ONE (04:20)
[2017-12-25] MEDS ORDERED: insulin regular, human 10 units/0.1 ml syringe IV ONE (04:20)
[2017-12-25] MEDS ORDERED: sodium bicarbonate (8.4%) 1 mEq/ml syringe IV ONE (04:20)
[2017-12-25] MEDS: vancomycin inj 1,250 MG in normal saline 250ml IV soln 250 ML IV SCH (06:50)
[2017-12-25] MEDS: normal saline 1000ml 1,000 ML IV SCH ×3 (06:50→20:49)
[2017-12-25 06:58] LABS: BASOPHILS % (AUTO) 0.2 % (0-1); EOSINOPHILS % (AUTO) 0.1 % (0-6); HEMATOCRIT 26.7 % (35.0-45.0); HEMOGLOBIN 9.3 g/dl (12.0-16.0); LYMPHOCYTES # (AUTO) 1.7 X10'3 (1.1-4.8); LYMPHOCYTES % (AUTO) 10.9 % (21-51); MEAN CORPUSCULAR HEMOGLOBIN 31.8 PG (27.0-31.0); MEAN CORPUSCULAR HGB CONC 34.9 % (33.0-36.5); MEAN CORPUSCULAR VOLUME 91.2 FL (78-98); MEAN PLATELET VOLUME 5.8 FL (7.4-10.4); MONOCYTES # (AUTO) 2.2 X10'3 (0-0.9); MONOCYTES % (AUTO) 14.5 % (2-12); NEUTROPHILS # (AUTO) 11.4 X10'3 (1.8-7.7); NEUTROPHILS % (AUTO) 74.3 % (42-75); PLATELET COUNT 228 X10'3 (140-440); RED BLOOD COUNT 2.92 X10'6 (4.20-5.60); RED CELL DISTRIBUTION WIDTH 16.5 % (11.5-14.5); WHITE BLOOD COUNT 15.3 X10'3 (4.5-11.0)
[2017-12-25 07:08] LABS: ALANINE AMINOTRANSFERASE 117 U/L (12-78); ALBUMIN 1.7 G/DL (3.4-5.0); ALBUMIN/GLOBULIN RATIO 0.5 (1.1-1.5); ALKALINE PHOSPHATASE 94 IU/L (46-116); ANION GAP 8 (8-16); ASPARTATE AMINO TRANSFERASE 619 U/L (10-37); BILIRUBIN,TOTAL 1.1 MG/DL (0.1-1.0); BLOOD UREA NITROGEN 29 MG/DL (7-18); BUN/CREATININE RATIO 23.4 (6.6-38.0); CALCIUM 6.8 MG/DL (8.5-10.1); CHLORIDE 106 MMOL/L (99-107); CREATININE 1.24 MG/DL (0.40-0.90); MAGNESIUM 2.2 MG/DL (1.5-2.4); POTASSIUM 5.5 MMOL/L (3.5-5.1); SODIUM 133 MMOL/L (135-145); TOTAL CARBON DIOXIDE 19.1 MMOL/L (24-32); TOTAL PROTEIN 5.1 G/DL (6.4-8.2); eGFR 45 ML/MIN
[2017-12-25 07:13] LABS: GLUCOSE 200 MG/DL (70-104)
[2017-12-25] MEDS: fenofibrate 48mg tablet PO SCH (08:22)
[2017-12-25] MEDS: ziprasidone 20mg capsule PO SCH (08:22)
[2017-12-25] MEDS: phenytoin sod ER 100mg capsule PO SCH (08:22)
[2017-12-25] MEDS: aspirin 81mg tablet.DR PO SCH (08:22)
[2017-12-25] MEDS: ciprofloxacin lact 400MG/200ML 200 ML IV SCH ×2 (08:22→21:08)
[2017-12-25] MEDS: calcitriol 0.25mcg capsule PO SCH (08:22)
[2017-12-25] MEDS: estradiol 1mg tablet PO SCH (08:22)
[2017-12-25] MEDS: divalproex sodium 500mg tablet.DR PO SCH ×2 (08:23→20:49)
[2017-12-25] MEDS: lactobacillus rhamnosus 10,000 MMU CELLS/CAPSULE PO SCH ×2 (08:24→21:08)
[2017-12-25] MEDS: levetiracetam 250mg tablet PO SCH ×2 (08:24→21:08)
[2017-12-25] MEDS: linezolid 600mg/300ml PREMIX 300 ML IV SCH (10:25)
[2017-12-25] MEDS ORDERED: normal saline 1000ml 1,000 ML IV ONE (11:00)
[2017-12-25] MEDS: morphine/NS 100mg/100ml bag 100 ML IV SCH (11:37)
[2017-12-25] MEDS ORDERED: VANCOMYCIN LEVEL IV ONE (13:30)
[2017-12-25] MEDS ORDERED: metroNIDAZOLE-Flagyl 500mg/NS 100 ML IV SCH (16:00)
[2017-12-25] MEDS: metroNIDAZOLE-Flagyl 500mg/NS 100 ML IV SCH ×2 (16:12→23:36)
[2017-12-25] MEDS: diphenhydrAMINE 25mg capsule PO SCH (21:00)
[2017-12-25] MEDS: famotidine/PF 10 mg/ml inj IV SCH (21:08)
[2017-12-25] MEDS: heparin, porcine 5000 units/ml vial SQ SCH (21:08)
[2017-12-25] MEDS: VANCOMYCIN 750MG IV in NS 250 ML IV SCH (23:33)
[2017-12-26] VITALS (32 sets, daily range): BP systolic 94–147; BP diastolic 42–63
[2017-12-26] MEDS: mineral oil/petrolatum ophthal oint EACHEYE SCH ×4 (03:00→20:56)
[2017-12-26 03:03] LABS: BASOPHILS % (AUTO) 0.2 % (0-1); EOSINOPHILS # (AUTO) 0.1 X10'3 (0-0.9); EOSINOPHILS % (AUTO) 1.4 % (0-6); HEMATOCRIT 24.4 % (35.0-45.0); HEMOGLOBIN 8.4 g/dl (12.0-16.0); LYMPHOCYTES # (AUTO) 1.3 X10'3 (1.1-4.8); MEAN CORPUSCULAR HEMOGLOBIN 31.5 PG (27.0-31.0); MEAN CORPUSCULAR HGB CONC 34.3 % (33.0-36.5); MEAN CORPUSCULAR VOLUME 91.8 FL (78-98); MEAN PLATELET VOLUME 5.6 FL (7.4-10.4); MONOCYTES # (AUTO) 0.9 X10'3 (0-0.9); MONOCYTES % (AUTO) 11.5 % (2-12); NEUTROPHILS # (AUTO) 5.7 X10'3 (1.8-7.7); NEUTROPHILS % (AUTO) 70.9 % (42-75); PLATELET COUNT 170 X10'3 (140-440); RED BLOOD COUNT 2.65 X10'6 (4.20-5.60); RED CELL DISTRIBUTION WIDTH 16.1 % (11.5-14.5); WHITE BLOOD COUNT 8.1 X10'3 (4.5-11.0)
[2017-12-26] MEDS: morphine/NS 100mg/100ml bag 100 ML IV SCH ×2 (03:09→21:26)
[2017-12-26 03:10] LABS: ALANINE AMINOTRANSFERASE 94 U/L (12-78); ALBUMIN 1.5 G/DL (3.4-5.0); ALBUMIN/GLOBULIN RATIO 0.4 (1.1-1.5); ALKALINE PHOSPHATASE 82 IU/L (46-116); ANION GAP 6 (8-16); ASPARTATE AMINO TRANSFERASE 311 U/L (10-37); BILIRUBIN,TOTAL 0.7 MG/DL (0.1-1.0); BLOOD UREA NITROGEN 38 MG/DL (7-18); BUN/CREATININE RATIO 33.6 (6.6-38.0); CALCIUM 7.1 MG/DL (8.5-10.1); CHLORIDE 109 MMOL/L (99-107); CREATININE 1.13 MG/DL (0.40-0.90); GLUCOSE 102 MG/DL (70-104); MAGNESIUM 2.3 MG/DL (1.5-2.4); PHOSPHORUS 2.6 MG/DL (2.3-4.5); POTASSIUM 5.1 MMOL/L (3.5-5.1); SODIUM 136 MMOL/L (135-145); TOTAL CARBON DIOXIDE 20.9 MMOL/L (24-32); eGFR 50 ML/MIN
[2017-12-26 03:15] LABS: MINUTE VOLUME 10 L/min; PATIENT TEMPERATURE 36.7; RESPIRATORY RATE 20 b/min; RESPIRATORY RATE (OBSERVED) 23 b/min; TIDAL VOLUME 350 mL
[2017-12-26 03:16] LABS: ABG BASE EXCESS -4.3 mmol/L (-2.0-3.0); ABG HCO3 20.1 mmol/L (22.0-26.0); ABG OXYGEN SATURATION 95.5 % (95-98); ABG PCO2 (T) 33.7 mmHg (32.0-45.0); ABG PH (T) 7.392 (7.350-7.450); ABG PO2 (T) 81.9 mmHg (83-108); FCOHb 0.3 % (0.5-1.5); FMetHb 0.2 % (0.3-1.12); PEEP 5 cm H2O; TOTAL HEMOGLOBIN 9.3 G/dl (12.0-16.0)
[2017-12-26] MEDS: normal saline 1000ml 1,000 ML IV SCH ×4 (06:31→22:42)
[2017-12-26] MEDS: VANCOMYCIN 750MG IV in NS 250 ML IV SCH (07:15)
[2017-12-26] MEDS: heparin, porcine 5000 units/ml vial SQ SCH ×3 (07:18→21:01)
[2017-12-26] MEDS: famotidine/PF 10 mg/ml inj IV SCH ×2 (07:18→20:00)
[2017-12-26] MEDS: levetiracetam 250mg tablet PO SCH ×2 (07:22→20:57)
[2017-12-26] MEDS: aspirin 81mg tablet.DR PO SCH (07:22)
[2017-12-26] MEDS: phenytoin sod ER 100mg capsule PO SCH (07:22)
[2017-12-26] MEDS: ziprasidone 20mg capsule PO SCH (07:22)
[2017-12-26] MEDS: lactobacillus rhamnosus 10,000 MMU CELLS/CAPSULE PO SCH ×2 (07:22→20:57)
[2017-12-26] MEDS: estradiol 1mg tablet PO SCH (07:22)
[2017-12-26] MEDS: calcitriol 0.25mcg capsule PO SCH (07:22)
[2017-12-26] MEDS: divalproex sodium 500mg tablet.DR PO SCH ×2 (07:22→20:57)
[2017-12-26] MEDS: fenofibrate 48mg tablet PO SCH (08:30)
[2017-12-26] MEDS: metroNIDAZOLE-Flagyl 500mg/NS 100 ML IV SCH ×2 (08:59→16:42)
[2017-12-26] MEDS: ciprofloxacin lact 400MG/200ML 200 ML IV SCH ×2 (10:34→20:57)
[2017-12-26] MEDS ORDERED: sevoflurane 250ml liquid IH ONE (11:55)
[2017-12-26] MEDS ORDERED: midazolam 2 mg/2 ml injection ONE (12:17)
[2017-12-26] MEDS ORDERED: fentaNYL/PF 50MCG/1 ML 2ML syringe ONE (12:17)
[2017-12-26] MEDS ORDERED: rocuronium 10mg/ml inj IV ONE (12:17)
[2017-12-26] MEDS ORDERED: albumin (Human) 5% 250ml 250 ML IV ONE ×2 (12:30→12:45)
[2017-12-26] MEDS ORDERED: ringers solution, lacted 1,000 ML IV SCH (13:03)
[2017-12-26 14:23] LABS: BASOPHILS % (AUTO) 0.2 % (0-1); EOSINOPHILS # (AUTO) 0.3 X10'3 (0-0.9); EOSINOPHILS % (AUTO) 1.2 % (0-6); HEMATOCRIT 24.2 % (35.0-45.0); HEMOGLOBIN 8.2 g/dl (12.0-16.0); LYMPHOCYTES # (AUTO) 2.3 X10'3 (1.1-4.8); LYMPHOCYTES % (AUTO) 10.9 % (21-51); MEAN CORPUSCULAR HEMOGLOBIN 31.3 PG (27.0-31.0); MEAN CORPUSCULAR HGB CONC 33.7 % (33.0-36.5); MEAN CORPUSCULAR VOLUME 92.8 FL (78-98); MEAN PLATELET VOLUME 5.9 FL (7.4-10.4); MONOCYTES # (AUTO) 2.1 X10'3 (0-0.9); NEUTROPHILS # (AUTO) 16.5 X10'3 (1.8-7.7); NEUTROPHILS % (AUTO) 77.7 % (42-75); PLATELET COUNT 308 X10'3 (140-440); RED BLOOD COUNT 2.61 X10'6 (4.20-5.60); RED CELL DISTRIBUTION WIDTH 16.6 % (11.5-14.5); WHITE BLOOD COUNT 21.3 X10'3 (4.5-11.0)
[2017-12-26 15:10] LABS: ANISOCYTOSIS 1+; NUCLEATED RED BLOOD CELLS 1 /100WBC (0-0); PLATELET ESTIMATE NORMAL; TOTAL CELLS COUNTED 100
[2017-12-26 15:11] LABS: BURR CELLS 1+; POLYCHROMASIA FEW; TOXIC GRANULATION 2+
[2017-12-26] MEDS: diphenhydrAMINE 25mg capsule PO SCH (20:57)
[2017-12-26] MEDS ORDERED: VANCOMYCIN LEVEL IV ONE (22:30)
[2017-12-27] VITALS (20 sets, daily range): BP systolic 99–138; BP diastolic 49–62
[2017-12-27] MEDS: metroNIDAZOLE-Flagyl 500mg/NS 100 ML IV SCH ×3 (00:07→16:20)
[2017-12-27] MEDS: mineral oil/petrolatum ophthal oint EACHEYE SCH ×4 (02:00→19:34)
[2017-12-27 03:08] LABS: BASOPHILS % (AUTO) 0 % (0-1); EOSINOPHILS % (AUTO) 0.3 % (0-6); HEMATOCRIT 29.7 % (35.0-45.0); HEMOGLOBIN 10.2 g/dl (12.0-16.0); LYMPHOCYTES # (AUTO) 1.5 X10'3 (1.1-4.8); LYMPHOCYTES % (AUTO) 8.5 % (21-51); MEAN CORPUSCULAR HEMOGLOBIN 30.7 PG (27.0-31.0); MEAN CORPUSCULAR HGB CONC 34.3 % (33.0-36.5); MEAN CORPUSCULAR VOLUME 89.6 FL (78-98); MEAN PLATELET VOLUME 5.9 FL (7.4-10.4); MONOCYTES # (AUTO) 1.9 X10'3 (0-0.9); MONOCYTES % (AUTO) 10.6 % (2-12); NEUTROPHILS # (AUTO) 14.2 X10'3 (1.8-7.7); NEUTROPHILS % (AUTO) 80.6 % (42-75); PLATELET COUNT 197 X10'3 (140-440); RED BLOOD COUNT 3.31 X10'6 (4.20-5.60); RED CELL DISTRIBUTION WIDTH 16.4 % (11.5-14.5); WHITE BLOOD COUNT 17.7 X10'3 (4.5-11.0)
[2017-12-27 03:16] LABS: ALANINE AMINOTRANSFERASE 69 U/L (12-78); ALBUMIN 1.8 G/DL (3.4-5.0); ALBUMIN/GLOBULIN RATIO 0.5 (1.1-1.5); ALKALINE PHOSPHATASE 86 IU/L (46-116); ANION GAP 11 (8-16); ASPARTATE AMINO TRANSFERASE 142 U/L (10-37); BILIRUBIN,TOTAL 1.1 MG/DL (0.1-1.0); BLOOD UREA NITROGEN 42 MG/DL (7-18); BUN/CREATININE RATIO 28.6 (6.6-38.0); CALCIUM 7.3 MG/DL (8.5-10.1); CHLORIDE 110 MMOL/L (99-107); CREATININE 1.47 MG/DL (0.40-0.90); MAGNESIUM 2.3 MG/DL (1.5-2.4); PHOSPHORUS 4.4 MG/DL (2.3-4.5); SODIUM 138 MMOL/L (135-145); TOTAL CARBON DIOXIDE 17.4 MMOL/L (24-32); TOTAL PROTEIN 5.5 G/DL (6.4-8.2); eGFR 37 ML/MIN
[2017-12-27 03:34] LABS: GLUCOSE 132 MG/DL (70-104); POTASSIUM 6.1 MMOL/L (3.5-5.1)
[2017-12-27 03:45] LABS: ABG BASE EXCESS -9.5 mmol/L (-2.0-3.0); ABG HCO3 14.6 mmol/L (22.0-26.0); ABG OXYGEN SATURATION 95.2 % (95-98); ABG PH (T) 7.353 (7.350-7.450); FCOHb 0.3 % (0.5-1.5); FMetHb 0.1 % (0.3-1.12); FO2Hb 94.8 % (94-100); MINUTE VOLUME 11 L/min; PATIENT TEMPERATURE 37.4; PEEP 5 cm H2O; RESPIRATORY RATE 20 b/min; RESPIRATORY RATE (OBSERVED) 27 b/min; TIDAL VOLUME 375 mL; TOTAL HEMOGLOBIN 10.8 G/dl (12.0-16.0)
[2017-12-27] MEDS ORDERED: dextrose 50%-water 50ml dispensing syringe IV ONE (03:50)
[2017-12-27] MEDS ORDERED: sodium bicarbonate (8.4%) 1 mEq/ml syringe IV ONE (03:50)
[2017-12-27] MEDS ORDERED: insulin regular, human 10 units/0.1 ml syringe IV ONE (03:50)
[2017-12-27 06:34] LABS: BANDS% (MANUAL) 3 % (0-10); EOSINOPHILS % (MANUAL) 1 % (0-6); LYMPHOCYTES % (MANUAL) 11 % (21-51); METAMYLEOCYTES% (MANUAL) 1 % (0-0); MONOCYTES % (MANUAL) 10 % (2-12); NEUTROPHILS % (MANUAL) 74 % (42-75); NUCLEATED RED BLOOD CELLS 2 /100WBC (0-0); TOTAL CELLS COUNTED 100
[2017-12-27 06:35] LABS: ANISOCYTOSIS 1+; PLATELET ESTIMATE NORMAL
[2017-12-27] MEDS: phenytoin sod ER 100mg capsule PO SCH ×2 (08:00→08:13)
[2017-12-27] MEDS: ziprasidone 20mg capsule PO SCH ×2 (08:00→08:12)
[2017-12-27] MEDS: divalproex sodium 500mg tablet.DR PO SCH ×2 (08:00→08:12)
[2017-12-27] MEDS: normal saline 1000ml 1,000 ML IV SCH ×3 (08:09→19:34)
[2017-12-27] MEDS: ciprofloxacin lact 400MG/200ML 200 ML IV SCH ×2 (08:10→19:32)
[2017-12-27] MEDS: lactobacillus rhamnosus 10,000 MMU CELLS/CAPSULE PO SCH ×2 (08:12→19:33)
[2017-12-27] MEDS: calcitriol 0.25mcg capsule PO SCH (08:12)
[2017-12-27] MEDS: levetiracetam 250mg tablet PO SCH ×2 (08:12→19:33)
[2017-12-27] MEDS: estradiol 1mg tablet PO SCH (08:12)
[2017-12-27] MEDS: fenofibrate 48mg tablet PO SCH (08:12)
[2017-12-27] MEDS: heparin, porcine 5000 units/ml vial SQ SCH ×2 (08:13→19:34)
[2017-12-27] MEDS: aspirin 81mg tablet.DR PO SCH (08:13)
[2017-12-27] MEDS: famotidine/PF 10 mg/ml inj IV SCH ×2 (11:45→19:33)
[2017-12-27 12:22] LABS: CLARITY,URINE SLIGHTLY CLOUDY (Clear); COLOR,URINE YELLOW (Yellow); GLUCOSE, URINE NEGATIVE (Neg); KETONES,URINE NEGATIVE (Neg); LEUKOCYTE ESTERASE ,URINE NEGATIVE (Neg); NITRITES, URINE NEGATIVE (Neg); OCCULT BLOOD,URINE MODERATE (Neg); PH,URINE 5.5 (4.8-8.0); PROTEIN,URINE TRACE mg/dl (Neg); UROBILINOGEN,URINE 0.2 E.U/dL (0.2-1.0)
[2017-12-27 12:23] LABS: UA COLLECTION TYPE FOLEY CATH
[2017-12-27 12:37] LABS: SODIUM,URINE RANDOM < 15 MEQ/L
[2017-12-27 12:48] LABS: MUCUS STRANDS FEW /LPF (Neg); SQUAMOUS EPITHELIAL CELL,UR MANY /LPF (FEW); TRANSITIONAL EPI CELLS,URINE MANY /HPF
[2017-12-27 12:49] LABS: BACTERIA,URINE 1+ /HPF (Neg); RENAL CELLS, URINE FEW /HPF
[2017-12-27 12:50] LABS: WBC,URINE 0-4 /HPF (0-4)
[2017-12-27] MEDS: divalproex sod 125mg sprinkle cap PO SCH ×2 (12:56→19:34)
[2017-12-27] MEDS: phenytoin 100mg/4ml ***ORAL SUSPENSION PO SCH ×2 (12:56→19:33)
[2017-12-27 14:16] LABS: UA EOSINOPHILS NO EOS /HPF
[2017-12-27] MEDS: ZIPRASIDONE NG SCH ×3 (14:25)
[2017-12-27] MEDS: diphenhydrAMINE 25mg capsule PO SCH (21:50)
[2017-12-28] VITALS (24 sets, daily range): BP systolic 102–155; BP diastolic 47–71
[2017-12-28] MEDS: metroNIDAZOLE-Flagyl 500mg/NS 100 ML IV SCH ×3 (00:29→16:29)
[2017-12-28] MEDS: normal saline 1000ml 1,000 ML IV SCH ×4 (03:00→22:34)
[2017-12-28] MEDS: mineral oil/petrolatum ophthal oint EACHEYE SCH ×4 (03:00→20:48)
[2017-12-28 03:45] LABS: BASOPHILS % (AUTO) 0.2 % (0-1); EOSINOPHILS # (AUTO) 0.2 X10'3 (0-0.9); EOSINOPHILS % (AUTO) 1.2 % (0-6); HEMATOCRIT 24.9 % (35.0-45.0); HEMOGLOBIN 8.5 g/dl (12.0-16.0); LYMPHOCYTES % (AUTO) 12.9 % (21-51); MEAN CORPUSCULAR HEMOGLOBIN 31.2 PG (27.0-31.0); MEAN CORPUSCULAR VOLUME 91.8 FL (78-98); MEAN PLATELET VOLUME 5.9 FL (7.4-10.4); MONOCYTES # (AUTO) 1.7 X10'3 (0-0.9); MONOCYTES % (AUTO) 10.5 % (2-12); NEUTROPHILS # (AUTO) 11.9 X10'3 (1.8-7.7); NEUTROPHILS % (AUTO) 75.2 % (42-75); PLATELET COUNT 183 X10'3 (140-440); RED BLOOD COUNT 2.71 X10'6 (4.20-5.60); RED CELL DISTRIBUTION WIDTH 16.7 % (11.5-14.5); WHITE BLOOD COUNT 15.8 X10'3 (4.5-11.0)
[2017-12-28 03:46] LABS: ABG BASE EXCESS -7.8 mmol/L (-2.0-3.0); ABG HCO3 15.8 mmol/L (22.0-26.0); ABG OXYGEN SATURATION 95.5 % (95-98); ABG PCO2 (T) 27.3 mmHg (32.0-45.0); ABG PH (T) 7.386 (7.350-7.450); ABG PO2 (T) 90.1 mmHg (83-108); FCOHb 0.3 % (0.5-1.5); FMetHb 0.2 % (0.3-1.12); MINUTE VOLUME 11 L/min; PATIENT TEMPERATURE 37.9; PEEP 5 cm H2O; RESPIRATORY RATE (OBSERVED) 14 b/min; TOTAL HEMOGLOBIN 9.1 G/dl (12.0-16.0)
[2017-12-28 04:01] LABS: ALANINE AMINOTRANSFERASE 46 U/L (12-78); ALBUMIN 1.6 G/DL (3.4-5.0); ALBUMIN/GLOBULIN RATIO 0.4 (1.1-1.5); ALKALINE PHOSPHATASE 75 IU/L (46-116); ANION GAP 11 (8-16); ASPARTATE AMINO TRANSFERASE 57 U/L (10-37); BILIRUBIN,TOTAL 0.9 MG/DL (0.1-1.0); BLOOD UREA NITROGEN 51 MG/DL (7-18); BUN/CREATININE RATIO 31.5 (6.6-38.0); CALCIUM 7.5 MG/DL (8.5-10.1); CHLORIDE 112 MMOL/L (99-107); CREATININE 1.62 MG/DL (0.40-0.90); MAGNESIUM 2.5 MG/DL (1.5-2.4); PHOSPHORUS 4.2 MG/DL (2.3-4.5); POTASSIUM 5.8 MMOL/L (3.5-5.1); SODIUM 140 MMOL/L (135-145); TOTAL PROTEIN 5.4 G/DL (6.4-8.2); eGFR 33 ML/MIN
[2017-12-28 04:09] LABS: GLUCOSE 143 MG/DL (70-104)
[2017-12-28] MEDS: phenytoin 100mg/4ml ***ORAL SUSPENSION PO SCH ×3 (04:44→20:48)
[2017-12-28] MEDS: famotidine/PF 10 mg/ml inj IV SCH (08:00)
[2017-12-28] MEDS: ZIPRASIDONE NG SCH ×3 (08:00)
[2017-12-28] MEDS: lactobacillus rhamnosus 10,000 MMU CELLS/CAPSULE PO SCH ×2 (08:21→20:48)
[2017-12-28] MEDS: aspirin 81mg tablet.DR PO SCH (08:21)
[2017-12-28] MEDS: ciprofloxacin lact 400MG/200ML 200 ML IV SCH ×2 (08:21→20:48)
[2017-12-28] MEDS: fenofibrate 48mg tablet PO SCH (08:21)
[2017-12-28] MEDS: levetiracetam 250mg tablet PO SCH ×2 (08:21→20:48)
[2017-12-28] MEDS: calcitriol 0.25mcg capsule PO SCH (08:21)
[2017-12-28] MEDS: estradiol 1mg tablet PO SCH (08:22)
[2017-12-28] MEDS: divalproex sod 125mg sprinkle cap PO SCH ×2 (08:22→20:48)
[2017-12-28] MEDS: heparin, porcine 5000 units/ml vial SQ SCH ×2 (08:24→20:48)
[2017-12-28 08:31] LABS: ANISOCYTOSIS 1+; BANDS% (MANUAL) 2 % (0-10); EOSINOPHILS % (MANUAL) 1 % (0-6); LYMPHOCYTES % (MANUAL) 7 % (21-51); METAMYLEOCYTES% (MANUAL) 1 % (0-0); MONOCYTES % (MANUAL) 9 % (2-12); MYELOCYTES % (MANUAL) 1 % (0-0); NEUTROPHILS % (MANUAL) 79 % (42-75); PLATELET ESTIMATE NORMAL; TOTAL CELLS COUNTED 100
[2017-12-28 08:32] LABS: POLYCHROMASIA 1+
[2017-12-28 12:11] LABS: OCCULT BLOOD STOOL POSITIVE (Neg)
[2017-12-28] MEDS: pantoprazole 40MG/NS 100ML BAG 100 ML IV SCH ×3 (14:57→21:16)
[2017-12-28] MEDS: morphine/NS 100mg/100ml bag 100 ML IV SCH (20:00)
[2017-12-28] MEDS: diphenhydrAMINE 25mg capsule PO SCH (21:16)
[2017-12-29] VITALS (25 sets, daily range): BP systolic 111–170; BP diastolic 40–77
[2017-12-29] MEDS: pantoprazole 40MG/NS 100ML BAG 100 ML IV SCH ×3 (00:34→13:15)
[2017-12-29] MEDS: metroNIDAZOLE-Flagyl 500mg/NS 100 ML IV SCH ×3 (00:34→16:14)
[2017-12-29] MEDS: mineral oil/petrolatum ophthal oint EACHEYE SCH ×4 (02:35→19:13)
[2017-12-29 02:47] LABS: BASOPHILS % (AUTO) 0.1 % (0-1); EOSINOPHILS % (AUTO) 0.1 % (0-6); HEMATOCRIT 25.2 % (35.0-45.0); HEMOGLOBIN 8.5 g/dl (12.0-16.0); LYMPHOCYTES # (AUTO) 1.6 X10'3 (1.1-4.8); LYMPHOCYTES % (AUTO) 10.4 % (21-51); MEAN CORPUSCULAR HEMOGLOBIN 31.5 PG (27.0-31.0); MEAN CORPUSCULAR HGB CONC 33.8 % (33.0-36.5); MEAN CORPUSCULAR VOLUME 93.2 FL (78-98); MEAN PLATELET VOLUME 5.8 FL (7.4-10.4); MONOCYTES # (AUTO) 1.7 X10'3 (0-0.9); MONOCYTES % (AUTO) 10.8 % (2-12); NEUTROPHILS # (AUTO) 12.2 X10'3 (1.8-7.7); NEUTROPHILS % (AUTO) 78.6 % (42-75); PLATELET COUNT 204 X10'3 (140-440); RED BLOOD COUNT 2.71 X10'6 (4.20-5.60); RED CELL DISTRIBUTION WIDTH 16.7 % (11.5-14.5); WHITE BLOOD COUNT 15.6 X10'3 (4.5-11.0)
[2017-12-29 03:01] LABS: ALANINE AMINOTRANSFERASE 40 U/L (12-78); ALBUMIN 1.7 G/DL (3.4-5.0); ALBUMIN/GLOBULIN RATIO 0.4 (1.1-1.5); ALKALINE PHOSPHATASE 78 IU/L (46-116); ANION GAP 12 (8-16); ASPARTATE AMINO TRANSFERASE 44 U/L (10-37); BILIRUBIN,TOTAL 0.7 MG/DL (0.1-1.0); BLOOD UREA NITROGEN 61 MG/DL (7-18); BUN/CREATININE RATIO 38.6 (6.6-38.0); CALCIUM 7.8 MG/DL (8.5-10.1); CHLORIDE 112 MMOL/L (99-107); CREATININE 1.58 MG/DL (0.40-0.90); MAGNESIUM 2.7 MG/DL (1.5-2.4); PHOSPHORUS 4.5 MG/DL (2.3-4.5); POTASSIUM 5.7 MMOL/L (3.5-5.1); SODIUM 141 MMOL/L (135-145); TOTAL CARBON DIOXIDE 17.1 MMOL/L (24-32); TOTAL PROTEIN 5.9 G/DL (6.4-8.2); eGFR 34 ML/MIN
[2017-12-29 03:02] LABS: GLUCOSE 152 MG/DL (70-104)
[2017-12-29] MEDS: phenytoin 100mg/4ml ***ORAL SUSPENSION PO SCH ×3 (03:59→19:13)
[2017-12-29] MEDS: morphine/NS 100mg/100ml bag 100 ML IV SCH (04:00)
[2017-12-29 04:46] LABS: ABG BASE EXCESS -7.3 mmol/L (-2.0-3.0); ABG HCO3 16.2 mmol/L (22.0-26.0); ABG OXYGEN SATURATION 96.3 % (95-98); ABG PCO2 (T) 26.4 mmHg (32.0-45.0); ABG PH (T) 7.407 (7.350-7.450); ABG PO2 (T) 92.6 mmHg (83-108); FCOHb 0.3 % (0.5-1.5); FMetHb 0.4 % (0.3-1.12); FO2Hb 95.6 % (94-100); MINUTE VOLUME 12 L/min; PATIENT TEMPERATURE 37.4; PEEP 5 cm H2O; RESPIRATORY RATE (OBSERVED) 17 b/min; TOTAL HEMOGLOBIN 9.3 G/dl (12.0-16.0)
[2017-12-29] MEDS: normal saline 1000ml 1,000 ML IV SCH ×3 (04:59→18:19)
[2017-12-29 07:25] LABS: ANISOCYTOSIS 1+; NUCLEATED RED BLOOD CELLS 3 /100WBC (0-0); PLATELET ESTIMATE NORMAL; POIKILOCYTOSIS FEW; POLYCHROMASIA 2+; TOTAL CELLS COUNTED 100; TOXIC GRANULATION 1+
[2017-12-29] MEDS: ZIPRASIDONE NG SCH ×3 (08:00)
[2017-12-29] MEDS: divalproex sod 125mg sprinkle cap PO SCH ×2 (08:21→19:13)
[2017-12-29] MEDS: lactobacillus rhamnosus 10,000 MMU CELLS/CAPSULE PO SCH ×2 (08:22→19:13)
[2017-12-29] MEDS: fenofibrate 48mg tablet PO SCH (08:22)
[2017-12-29] MEDS: heparin, porcine 5000 units/ml vial SQ SCH ×2 (08:22→19:14)
[2017-12-29] MEDS: calcitriol 0.25mcg capsule PO SCH (08:22)
[2017-12-29] MEDS: estradiol 1mg tablet PO SCH (08:22)
[2017-12-29] MEDS: aspirin 81mg tablet.DR PO SCH (08:22)
[2017-12-29] MEDS: levetiracetam 250mg tablet PO SCH ×2 (08:22→19:13)
[2017-12-29] MEDS: ciprofloxacin lact 400MG/200ML 200 ML IV SCH ×2 (09:01→19:14)
[2017-12-29] MEDS ORDERED: fentaNYL/PF 50MCG/1 ML 2ML syringe ONE (14:16)
[2017-12-29] MEDS ORDERED: LIDOcaine Viscous 15ml cup ONE (14:17)
[2017-12-29] MEDS ORDERED: MIDAZolam 5mg/ml 2ml vial ONE (14:17)
[2017-12-29] MEDS ORDERED: pantoprazole IV 80 MG in normal saline 100ml IV soln 100 ML IV SCH (15:56)
[2017-12-29] MEDS: pantoprazole IV 80 MG in normal saline 100ml IV soln 100 ML IV SCH (16:18)
[2017-12-29] MEDS: diphenhydrAMINE 25mg capsule PO SCH (21:00)
[2017-12-30] VITALS (24 sets, daily range): BP systolic 116–154; BP diastolic 52–85
[2017-12-30] MEDS: metroNIDAZOLE-Flagyl 500mg/NS 100 ML IV SCH ×3 (00:42→15:46)
[2017-12-30] MEDS: normal saline 1000ml 1,000 ML IV SCH ×3 (00:59→15:45)
[2017-12-30] MEDS: pantoprazole IV 80 MG in normal saline 100ml IV soln 100 ML IV SCH ×3 (02:18→22:18)
[2017-12-30] MEDS: mineral oil/petrolatum ophthal oint EACHEYE SCH ×4 (02:45→20:00)
[2017-12-30 03:55] LABS: ABG BASE EXCESS -8.7 mmol/L (-2.0-3.0); ABG HCO3 15.3 mmol/L (22.0-26.0); ABG OXYGEN SATURATION 95.3 % (95-98); ABG PCO2 (T) 26.9 mmHg (32.0-45.0); ABG PH (T) 7.372 (7.350-7.450); ABG PO2 (T) 85.5 mmHg (83-108); ALLEN'S TEST Positive; FCOHb 0.3 % (0.5-1.5); FMetHb 0.4 % (0.3-1.12); FO2Hb 94.6 % (94-100); MINUTE VOLUME 13 L/min; PATIENT TEMPERATURE 37.2; PEEP 5 cm H2O; RESPIRATORY RATE (OBSERVED) 17 b/min; TOTAL HEMOGLOBIN 9.6 G/dl (12.0-16.0)
[2017-12-30] MEDS: phenytoin 100mg/4ml ***ORAL SUSPENSION PO SCH ×3 (04:00→20:35)
[2017-12-30 05:34] LABS: BASOPHILS % (AUTO) 0.2 % (0-1); EOSINOPHILS % (AUTO) 0.1 % (0-6); HEMATOCRIT 26.4 % (35.0-45.0); LYMPHOCYTES # (AUTO) 1.8 X10'3 (1.1-4.8); MEAN CORPUSCULAR HEMOGLOBIN 31.7 PG (27.0-31.0); MEAN CORPUSCULAR HGB CONC 34.1 % (33.0-36.5); MEAN CORPUSCULAR VOLUME 92.9 FL (78-98); MEAN PLATELET VOLUME 5.7 FL (7.4-10.4); MONOCYTES # (AUTO) 1.3 X10'3 (0-0.9); MONOCYTES % (AUTO) 9.6 % (2-12); NEUTROPHILS # (AUTO) 10.7 X10'3 (1.8-7.7); NEUTROPHILS % (AUTO) 77.1 % (42-75); PLATELET COUNT 202 X10'3 (140-440); RED BLOOD COUNT 2.85 X10'6 (4.20-5.60); RED CELL DISTRIBUTION WIDTH 17.2 % (11.5-14.5); WHITE BLOOD COUNT 13.9 X10'3 (4.5-11.0)
[2017-12-30 05:49] LABS: ALANINE AMINOTRANSFERASE 34 U/L (12-78); ALBUMIN 1.8 G/DL (3.4-5.0); ALBUMIN/GLOBULIN RATIO 0.4 (1.1-1.5); ALKALINE PHOSPHATASE 84 IU/L (46-116); ANION GAP 8 (8-16); ASPARTATE AMINO TRANSFERASE 36 U/L (10-37); BILIRUBIN,TOTAL 0.9 MG/DL (0.1-1.0); BLOOD UREA NITROGEN 64 MG/DL (7-18); BUN/CREATININE RATIO 37.4 (6.6-38.0); CHLORIDE 114 MMOL/L (99-107); CREATININE 1.71 MG/DL (0.40-0.90); GLUCOSE 158 MG/DL (70-104); MAGNESIUM 2.9 MG/DL (1.5-2.4); PHOSPHORUS 5.3 MG/DL (2.3-4.5); POTASSIUM 5.9 MMOL/L (3.5-5.1); SODIUM 140 MMOL/L (135-145); TOTAL CARBON DIOXIDE 17.9 MMOL/L (24-32); TOTAL PROTEIN 6.6 G/DL (6.4-8.2); eGFR 31 ML/MIN
[2017-12-30 07:13] LABS: ANISOCYTOSIS 1+; NUCLEATED RED BLOOD CELLS 2 /100WBC (0-0); PLATELET ESTIMATE NORMAL; POIKILOCYTOSIS FEW; POLYCHROMASIA 3+; TOTAL CELLS COUNTED 100
[2017-12-30 07:14] LABS: TOXIC GRANULATION 1+
[2017-12-30] MEDS: levetiracetam 250mg tablet PO SCH ×2 (08:16→20:35)
[2017-12-30] MEDS: calcitriol 0.25mcg capsule PO SCH (08:16)
[2017-12-30] MEDS: heparin, porcine 5000 units/ml vial SQ SCH ×2 (08:16→20:34)
[2017-12-30] MEDS: fenofibrate 48mg tablet PO SCH (08:16)
[2017-12-30] MEDS: aspirin 81mg tablet.DR PO SCH (08:16)
[2017-12-30] MEDS: lactobacillus rhamnosus 10,000 MMU CELLS/CAPSULE PO SCH ×2 (08:16→20:35)
[2017-12-30] MEDS: ciprofloxacin lact 400MG/200ML 200 ML IV SCH ×2 (08:16→20:34)
[2017-12-30] MEDS: estradiol 1mg tablet PO SCH (08:17)
[2017-12-30] MEDS: divalproex sod 125mg sprinkle cap PO SCH ×2 (08:17→20:34)
[2017-12-30] MEDS: morphine/NS 100mg/100ml bag 100 ML IV SCH (12:00)
[2017-12-30] MEDS: diphenhydrAMINE 25mg capsule PO SCH (20:13)
[2017-12-31] VITALS (26 sets, daily range): BP systolic 99–122; BP diastolic 43–62
[2017-12-31] MEDS: metroNIDAZOLE-Flagyl 500mg/NS 100 ML IV SCH ×3 (00:54→16:32)
[2017-12-31] MEDS: normal saline 1000ml 1,000 ML IV SCH ×5 (00:54→23:42)
[2017-12-31] MEDS: mineral oil/petrolatum ophthal oint EACHEYE SCH ×4 (02:00→19:12)
[2017-12-31 03:21] LABS: ABG BASE EXCESS -10.1 mmol/L (-2.0-3.0); ABG OXYGEN SATURATION 95.4 % (95-98); ABG PCO2 (T) 35.2 mmHg (32.0-45.0); ABG PH (T) 7.273 (7.350-7.450); ABG PO2 (T) 89.2 mmHg (83-108); ALLEN'S TEST Positive; FCOHb 0.3 % (0.5-1.5); FMetHb 0.4 % (0.3-1.12); FO2Hb 94.7 % (94-100); MINUTE VOLUME 7 L/min; PATIENT TEMPERATURE 36.7; PEEP 5 cm H2O; TOTAL HEMOGLOBIN 9.3 G/dl (12.0-16.0)
[2017-12-31] MEDS: phenytoin 100mg/4ml ***ORAL SUSPENSION PO SCH ×3 (04:51→19:13)
[2017-12-31 05:20] LABS: BASOPHILS % (AUTO) 0.5 % (0-1); EOSINOPHILS # (AUTO) 0.1 X10'3 (0-0.9); EOSINOPHILS % (AUTO) 0.5 % (0-6); HEMATOCRIT 26.4 % (35.0-45.0); LYMPHOCYTES # (AUTO) 1.7 X10'3 (1.1-4.8); LYMPHOCYTES % (AUTO) 17.9 % (21-51); MEAN CORPUSCULAR HEMOGLOBIN 32.4 PG (27.0-31.0); MEAN CORPUSCULAR HGB CONC 34.1 % (33.0-36.5); MEAN CORPUSCULAR VOLUME 95.1 FL (78-98); MEAN PLATELET VOLUME 5.9 FL (7.4-10.4); MONOCYTES # (AUTO) 1.2 X10'3 (0-0.9); MONOCYTES % (AUTO) 12.6 % (2-12); NEUTROPHILS # (AUTO) 6.7 X10'3 (1.8-7.7); NEUTROPHILS % (AUTO) 68.5 % (42-75); PLATELET COUNT 199 X10'3 (140-440); RED BLOOD COUNT 2.77 X10'6 (4.20-5.60); RED CELL DISTRIBUTION WIDTH 17.8 % (11.5-14.5); WHITE BLOOD COUNT 9.8 X10'3 (4.5-11.0)
[2017-12-31 05:45] LABS: ALANINE AMINOTRANSFERASE 30 U/L (12-78); ALBUMIN 1.7 G/DL (3.4-5.0); ALBUMIN/GLOBULIN RATIO 0.4 (1.1-1.5); ALKALINE PHOSPHATASE 77 IU/L (46-116); ANION GAP 9 (8-16); ASPARTATE AMINO TRANSFERASE 40 U/L (10-37); BILIRUBIN,TOTAL 0.7 MG/DL (0.1-1.0); BLOOD UREA NITROGEN 62 MG/DL (7-18); BUN/CREATININE RATIO 37.3 (6.6-38.0); CALCIUM 7.6 MG/DL (8.5-10.1); CHLORIDE 117 MMOL/L (99-107); CREATININE 1.66 MG/DL (0.40-0.90); MAGNESIUM 2.8 MG/DL (1.5-2.4); PHOSPHORUS 5.5 MG/DL (2.3-4.5); SODIUM 143 MMOL/L (135-145); TOTAL CARBON DIOXIDE 17.2 MMOL/L (24-32); TOTAL PROTEIN 6.4 G/DL (6.4-8.2); eGFR 32 ML/MIN
[2017-12-31 05:51] LABS: GLUCOSE 127 MG/DL (70-104); POTASSIUM 5.9 MMOL/L (3.5-5.1)
[2017-12-31] MEDS: lactobacillus rhamnosus 10,000 MMU CELLS/CAPSULE PO SCH ×2 (08:23→19:12)
[2017-12-31] MEDS: ciprofloxacin lact 400MG/200ML 200 ML IV SCH ×2 (08:23→19:12)
[2017-12-31] MEDS: calcitriol 0.25mcg capsule PO SCH (08:23)
[2017-12-31] MEDS: divalproex sod 125mg sprinkle cap PO SCH ×2 (08:23→19:13)
[2017-12-31] MEDS: estradiol 1mg tablet PO SCH (08:24)
[2017-12-31] MEDS: heparin, porcine 5000 units/ml vial SQ SCH ×2 (08:24→19:13)
[2017-12-31] MEDS: aspirin 81mg tablet.DR PO SCH (08:24)
[2017-12-31] MEDS: levetiracetam 250mg tablet PO SCH ×2 (08:24→19:13)
[2017-12-31] MEDS: pantoprazole IV 80 MG in normal saline 100ml IV soln 100 ML IV SCH ×3 (08:24→18:18)
[2017-12-31] MEDS: fenofibrate 48mg tablet PO SCH (08:25)
[2017-12-31] MEDS: morphine/NS 100mg/100ml bag 100 ML IV SCH (17:02)
[2017-12-31] MEDS: diphenhydrAMINE 25mg capsule PO SCH (19:13)
[2018-01-01] VITALS (23 sets, daily range): BP systolic 101–126; BP diastolic 47–61
[2018-01-01] MEDS: metroNIDAZOLE-Flagyl 500mg/NS 100 ML IV SCH ×4 (00:24→23:21)
[2018-01-01] MEDS: mineral oil/petrolatum ophthal oint EACHEYE SCH ×4 (02:08→20:05)
[2018-01-01 03:41] LABS: ABG BASE EXCESS -7.4 mmol/L (-2.0-3.0); ABG HCO3 17.4 mmol/L (22.0-26.0); ABG OXYGEN SATURATION 95.4 % (95-98); ABG PH (T) 7.351 (7.350-7.450); ABG PO2 (T) 83.4 mmHg (83-108); ALLEN'S TEST Positive; FCOHb 0.3 % (0.5-1.5); FMetHb 0.3 % (0.3-1.12); FO2Hb 94.8 % (94-100); MINUTE VOLUME 10 L/min; PATIENT TEMPERATURE 36.8; PEEP 5 cm H2O; RESPIRATORY RATE (OBSERVED) 15 b/min; TOTAL HEMOGLOBIN 9.4 G/dl (12.0-16.0)
[2018-01-01] MEDS: phenytoin 100mg/4ml ***ORAL SUSPENSION PO SCH ×3 (04:32→20:03)
[2018-01-01] MEDS: pantoprazole IV 80 MG in normal saline 100ml IV soln 100 ML IV SCH (04:33)
[2018-01-01 05:37] LABS: BASOPHILS % (AUTO) 0.2 % (0-1); EOSINOPHILS # (AUTO) 0.1 X10'3 (0-0.9); EOSINOPHILS % (AUTO) 1.5 % (0-6); HEMATOCRIT 25.7 % (35.0-45.0); HEMOGLOBIN 8.6 g/dl (12.0-16.0); LYMPHOCYTES # (AUTO) 1.1 X10'3 (1.1-4.8); LYMPHOCYTES % (AUTO) 19.1 % (21-51); MEAN CORPUSCULAR HEMOGLOBIN 31.9 PG (27.0-31.0); MEAN CORPUSCULAR HGB CONC 33.5 % (33.0-36.5); MEAN CORPUSCULAR VOLUME 95.1 FL (78-98); MEAN PLATELET VOLUME 5.9 FL (7.4-10.4); MONOCYTES # (AUTO) 0.9 X10'3 (0-0.9); MONOCYTES % (AUTO) 15.6 % (2-12); NEUTROPHILS # (AUTO) 3.8 X10'3 (1.8-7.7); NEUTROPHILS % (AUTO) 63.6 % (42-75); PLATELET COUNT 173 X10'3 (140-440); RED CELL DISTRIBUTION WIDTH 17.9 % (11.5-14.5)
[2018-01-01 05:56] LABS: ALANINE AMINOTRANSFERASE 25 U/L (12-78); ALBUMIN 1.6 G/DL (3.4-5.0); ALBUMIN/GLOBULIN RATIO 0.3 (1.1-1.5); ALKALINE PHOSPHATASE 74 IU/L (46-116); ANION GAP 8 (8-16); ASPARTATE AMINO TRANSFERASE 33 U/L (10-37); BILIRUBIN,TOTAL 0.6 MG/DL (0.1-1.0); BLOOD UREA NITROGEN 56 MG/DL (7-18); BUN/CREATININE RATIO 36.1 (6.6-38.0); CALCIUM 7.5 MG/DL (8.5-10.1); CHLORIDE 117 MMOL/L (99-107); CREATININE 1.55 MG/DL (0.40-0.90); MAGNESIUM 2.7 MG/DL (1.5-2.4); PHOSPHORUS 4.3 MG/DL (2.3-4.5); POTASSIUM 5.4 MMOL/L (3.5-5.1); PREALBUMIN 9.8 MG/DL (19-36); SODIUM 143 MMOL/L (135-145); TOTAL CARBON DIOXIDE 18.2 MMOL/L (24-32); TOTAL PROTEIN 6.3 G/DL (6.4-8.2); eGFR 35 ML/MIN
[2018-01-01 05:58] LABS: GLUCOSE 150 MG/DL (70-104)
[2018-01-01] MEDS: normal saline 1000ml 1,000 ML IV SCH ×2 (06:19→10:35)
[2018-01-01] MEDS: heparin, porcine 5000 units/ml vial SQ SCH ×2 (07:21→20:04)
[2018-01-01] MEDS: estradiol 1mg tablet PO SCH (07:22)
[2018-01-01] MEDS: levetiracetam 250mg tablet PO SCH ×2 (07:22→20:04)
[2018-01-01] MEDS: aspirin 81mg tablet.DR PO SCH (07:22)
[2018-01-01] MEDS: calcitriol 0.25mcg capsule PO SCH (07:22)
[2018-01-01] MEDS: lactobacillus rhamnosus 10,000 MMU CELLS/CAPSULE PO SCH ×2 (07:22→20:04)
[2018-01-01] MEDS: ciprofloxacin lact 400MG/200ML 200 ML IV SCH ×2 (08:15→20:03)
[2018-01-01] MEDS: fenofibrate 48mg tablet PO SCH (08:30)
[2018-01-01] MEDS: divalproex sod 125mg sprinkle cap PO SCH ×2 (08:54→20:16)
[2018-01-01] MEDS: dexamethasone sod phosphate 10mg/ml inj IV SCH ×2 (13:19→20:03)
[2018-01-01] MEDS: morphine/NS 100mg/100ml bag 100 ML IV SCH (16:58)
[2018-01-01] MEDS: pantoprazole 40 MG vial IV SCH (20:03)
[2018-01-01] MEDS: diphenhydrAMINE 25mg capsule PO SCH (20:04)
[2018-01-02] VITALS (24 sets, daily range): BP systolic 96–118; BP diastolic 42–64
[2018-01-02] MEDS: dexamethasone sod phosphate 10mg/ml inj IV SCH ×4 (01:18→20:21)
[2018-01-02] MEDS: mineral oil/petrolatum ophthal oint EACHEYE SCH ×5 (01:18→23:52)
[2018-01-02] MEDS: normal saline 1000ml 1,000 ML IV SCH ×3 (01:21→17:32)
[2018-01-02] MEDS ORDERED: glucagon, human recombinant 1mg kit SUBCUT PRN (02:45)
[2018-01-02] MEDS ORDERED: insulin regular, human vial - multi-dose SQ SCH (02:45)
[2018-01-02] MEDS ORDERED: MESSAGE TO PHARMACY PO ONE (02:45)
[2018-01-02] MEDS ORDERED: dextrose 50%-water 50ml dispensing syringe IV PRN ×2 (02:45)
[2018-01-02] MEDS ORDERED: dextrose ORAL solution 15 GM/59 ML bottle PO PRN ×2 (02:45)
[2018-01-02] MEDS ORDERED: insulin regular, human vial - multi-dose ONE (02:53)
[2018-01-02] MEDS: phenytoin 100mg/4ml ***ORAL SUSPENSION PO SCH ×3 (03:03→20:25)
[2018-01-02 04:06] LABS: ABG BASE EXCESS -6.3 mmol/L (-2.0-3.0); ABG HCO3 19.3 mmol/L (22.0-26.0); ABG OXYGEN SATURATION 96.5 % (95-98); ABG PCO2 (T) 39.4 mmHg (32.0-45.0); ABG PO2 (T) 97.9 mmHg (83-108); ALLEN'S TEST Positive; FCOHb 0.3 % (0.5-1.5); FMetHb 0.2 % (0.3-1.12); MINUTE VOLUME 6 L/min; PATIENT TEMPERATURE 37.3; PEEP 5 cm H2O; RESPIRATORY RATE (OBSERVED) 8 b/min; TOTAL HEMOGLOBIN 9.7 G/dl (12.0-16.0)
[2018-01-02 05:02] LABS: ALANINE AMINOTRANSFERASE 20 U/L (12-78); ALBUMIN 1.6 G/DL (3.4-5.0); ALKALINE PHOSPHATASE 81 IU/L (46-116); ANION GAP 7 (8-16); CALCIUM 7.7 MG/DL (8.5-10.1); CHLORIDE 117 MMOL/L (99-107); CREATININE 1.44 MG/DL (0.40-0.90); MAGNESIUM 2.7 MG/DL (1.5-2.4); SODIUM 144 MMOL/L (135-145); TOTAL CARBON DIOXIDE 19.6 MMOL/L (24-32); eGFR 38 ML/MIN
[2018-01-02 05:04] LABS: ALBUMIN/GLOBULIN RATIO 0.3 (1.1-1.5); ASPARTATE AMINO TRANSFERASE 29 U/L (10-37); BILIRUBIN,TOTAL 0.5 MG/DL (0.1-1.0); TOTAL PROTEIN 6.4 G/DL (6.4-8.2)
[2018-01-02 05:18] LABS: BLOOD UREA NITROGEN 58 MG/DL (7-18); BUN/CREATININE RATIO 40.3 (6.6-38.0); GLUCOSE 220 MG/DL (70-104); PHOSPHORUS 4.3 MG/DL (2.3-4.5)
[2018-01-02 05:40] LABS: BASOPHILS % (AUTO) 0 % (0-1); EOSINOPHILS # (AUTO) 0.1 X10'3 (0-0.9); EOSINOPHILS % (AUTO) 0.7 % (0-6); HEMATOCRIT 25.7 % (35.0-45.0); HEMOGLOBIN 9.1 g/dl (12.0-16.0); LYMPHOCYTES # (AUTO) 0.5 X10'3 (1.1-4.8); LYMPHOCYTES % (AUTO) 5.9 % (21-51); MEAN CORPUSCULAR HEMOGLOBIN 33.6 PG (27.0-31.0); MEAN CORPUSCULAR HGB CONC 35.2 % (33.0-36.5); MEAN CORPUSCULAR VOLUME 95.4 FL (78-98); MEAN PLATELET VOLUME 6.1 FL (7.4-10.4); MONOCYTES # (AUTO) 0.3 X10'3 (0-0.9); MONOCYTES % (AUTO) 3.8 % (2-12); NEUTROPHILS # (AUTO) 7.1 X10'3 (1.8-7.7); NEUTROPHILS % (AUTO) 89.6 % (42-75); PLATELET COUNT 172 X10'3 (140-440); RED BLOOD COUNT 2.69 X10'6 (4.20-5.60); RED CELL DISTRIBUTION WIDTH 23.3 % (11.5-14.5)
[2018-01-02] MEDS: heparin, porcine 5000 units/ml vial SQ SCH ×2 (08:00→20:21)
[2018-01-02] MEDS: levetiracetam 250mg tablet PO SCH ×2 (08:00→20:20)
[2018-01-02] MEDS: aspirin 81mg tablet.DR PO SCH (08:00)
[2018-01-02] MEDS: ciprofloxacin lact 400MG/200ML 200 ML IV SCH ×2 (08:00→20:21)
[2018-01-02] MEDS: pantoprazole 40 MG vial IV SCH ×2 (08:00→20:21)
[2018-01-02] MEDS: lactobacillus rhamnosus 10,000 MMU CELLS/CAPSULE PO SCH ×2 (08:00→20:20)
[2018-01-02] MEDS: calcitriol 0.25mcg capsule PO SCH (08:00)
[2018-01-02] MEDS: divalproex sod 125mg sprinkle cap PO SCH ×2 (08:00→20:25)
[2018-01-02] MEDS: estradiol 1mg tablet PO SCH (08:00)
[2018-01-02] MEDS: metroNIDAZOLE-Flagyl 500mg/NS 100 ML IV SCH ×3 (08:00→23:57)
[2018-01-02] MEDS: fenofibrate 48mg tablet PO SCH (08:30)
[2018-01-02] MEDS ORDERED: morphine/NS 5 mg/ml CADD 50 ML IV SCH (09:16)
[2018-01-02] MEDS ORDERED: CADD PCA waste documentation MC PRN (09:20)
[2018-01-02] MEDS ORDERED: naloxone 0.4 mg/ml inj IV PRN (09:20)
[2018-01-02] MEDS ORDERED: ipratropium/albuterol 3ml nebule NEB PRN (09:20)
[2018-01-02] MEDS ORDERED: racepinephrine 11.25mg/0.5ml nebule NEB PRN (09:20)
[2018-01-02] MEDS: ipratropium/albuterol 3ml nebule NEB SCH ×2 (15:24→20:21)
[2018-01-02] MEDS: morphine/NS 100mg/100ml bag 100 ML IV SCH (20:00)
[2018-01-02] MEDS: diphenhydrAMINE 25mg capsule PO SCH (20:20)
[2018-01-02] MEDS: sennosides/docusate sodium tablet PO SCH (20:20)
[2018-01-02] MEDS: docusate sod 100mg capsule PO SCH (20:25)
[2018-01-02] MEDS: insulin Lispro (HumaLOG) vial - multi-dose SQ SCH (23:02)
[2018-01-02] MEDS: insulin glargine (Lantus) pen - multi-dose SQ SCH (23:03)
[2018-01-02] MEDS ORDERED: Permethrin 1% 59ml topical rinse TP ONE (23:50)
[2018-01-02] MEDS ORDERED: Permethrin Cream 60gm TP ONE (23:50)
[2018-01-03] VITALS (23 sets, daily range): BP systolic 86–127; BP diastolic 32–63
[2018-01-03] MEDS: dexamethasone sod phosphate 10mg/ml inj IV SCH ×2 (02:52→08:23)
[2018-01-03] MEDS: ipratropium/albuterol 3ml nebule NEB SCH ×4 (03:00→20:26)
[2018-01-03] MEDS: phenytoin 100mg/4ml ***ORAL SUSPENSION PO SCH ×3 (03:02→19:54)
[2018-01-03] MEDS: normal saline 1000ml 1,000 ML IV SCH ×2 (04:04→23:57)
[2018-01-03 05:48] LABS: ALANINE AMINOTRANSFERASE 24 U/L (12-78); ALBUMIN 1.6 G/DL (3.4-5.0); ALKALINE PHOSPHATASE 72 IU/L (46-116); ANION GAP 7 (8-16); CHLORIDE 121 MMOL/L (99-107); CREATININE 1.38 MG/DL (0.40-0.90); MAGNESIUM 2.8 MG/DL (1.5-2.4); POTASSIUM 5.5 MMOL/L (3.5-5.1); SODIUM 149 MMOL/L (135-145); TOTAL CARBON DIOXIDE 20.9 MMOL/L (24-32); eGFR 40 ML/MIN
[2018-01-03 05:49] LABS: ALBUMIN/GLOBULIN RATIO 0.3 (1.1-1.5); ASPARTATE AMINO TRANSFERASE 29 U/L (10-37); BILIRUBIN,TOTAL 0.5 MG/DL (0.1-1.0); BLOOD UREA NITROGEN 59 MG/DL (7-18); BUN/CREATININE RATIO 42.8 (6.6-38.0); GLUCOSE 233 MG/DL (70-104); PHOSPHORUS 3.9 MG/DL (2.3-4.5); TOTAL PROTEIN 6.4 G/DL (6.4-8.2)
[2018-01-03 06:32] LABS: BASOPHILS % (AUTO) 0 % (0-1); EOSINOPHILS % (AUTO) 0.4 % (0-6); HEMATOCRIT 27.8 % (35.0-45.0); HEMOGLOBIN 9.3 g/dl (12.0-16.0); LYMPHOCYTES # (AUTO) 0.4 X10'3 (1.1-4.8); LYMPHOCYTES % (AUTO) 8.2 % (21-51); MEAN CORPUSCULAR HEMOGLOBIN 32.1 PG (27.0-31.0); MEAN CORPUSCULAR HGB CONC 33.4 % (33.0-36.5); MEAN CORPUSCULAR VOLUME 96.2 FL (78-98); MEAN PLATELET VOLUME 6.4 FL (7.4-10.4); MONOCYTES # (AUTO) 0.5 X10'3 (0-0.9); MONOCYTES % (AUTO) 8.6 % (2-12); NEUTROPHILS # (AUTO) 4.4 X10'3 (1.8-7.7); NEUTROPHILS % (AUTO) 82.8 % (42-75); PLATELET COUNT 178 X10'3 (140-440); RED BLOOD COUNT 2.89 X10'6 (4.20-5.60); RED CELL DISTRIBUTION WIDTH 24.6 % (11.5-14.5); WHITE BLOOD COUNT 5.3 X10'3 (4.5-11.0)
[2018-01-03] MEDS: insulin Lispro (HumaLOG) vial - multi-dose SQ SCH ×4 (07:00→22:47)
[2018-01-03] MEDS: estradiol 1mg tablet PO SCH (08:00)
[2018-01-03] MEDS: divalproex sod 125mg sprinkle cap PO SCH ×2 (08:00→19:55)
[2018-01-03] MEDS: metroNIDAZOLE-Flagyl 500mg/NS 100 ML IV SCH ×3 (08:22→23:57)
[2018-01-03] MEDS: fenofibrate 48mg tablet PO SCH (08:23)
[2018-01-03] MEDS: docusate sod 100mg capsule PO SCH ×2 (08:23→19:56)
[2018-01-03] MEDS: calcitriol 0.25mcg capsule PO SCH (08:23)
[2018-01-03] MEDS: levetiracetam 250mg tablet PO SCH ×2 (08:23→19:54)
[2018-01-03] MEDS: pantoprazole 40 MG vial IV SCH ×2 (08:24→19:55)
[2018-01-03] MEDS: sennosides/docusate sodium tablet PO SCH ×2 (08:24→19:56)
[2018-01-03] MEDS: mineral oil/petrolatum ophthal oint EACHEYE SCH ×3 (08:25→19:58)
[2018-01-03] MEDS: lactobacillus rhamnosus 10,000 MMU CELLS/CAPSULE PO SCH ×2 (08:25→19:56)
[2018-01-03] MEDS: aspirin 81mg tablet.DR PO SCH (08:25)
[2018-01-03] MEDS: heparin, porcine 5000 units/ml vial SQ SCH ×2 (08:26→19:56)
[2018-01-03] MEDS: ciprofloxacin lact 400MG/200ML 200 ML IV SCH ×2 (09:40→19:54)
[2018-01-03] MEDS ORDERED: Ivermectin 3mg tablet PO SCH (11:50)
[2018-01-03] MEDS ORDERED: Permethrin 1% 59ml topical rinse TP ONE (21:40)
[2018-01-03] MEDS: diphenhydrAMINE 25mg capsule PO SCH (22:41)
[2018-01-03] MEDS: insulin glargine (Lantus) pen - multi-dose SQ SCH (22:48)
[2018-01-04] VITALS (19 sets, daily range): BP systolic 102–132; BP diastolic 52–77
[2018-01-04] MEDS: mineral oil/petrolatum ophthal oint EACHEYE SCH ×4 (02:00→20:00)
[2018-01-04] MEDS: ipratropium/albuterol 3ml nebule NEB SCH ×4 (03:00→21:00)
[2018-01-04] MEDS: phenytoin 100mg/4ml ***ORAL SUSPENSION PO SCH ×3 (05:10→22:11)
[2018-01-04] MEDS: metroNIDAZOLE-Flagyl 500mg/NS 100 ML IV SCH ×2 (07:13→15:33)
[2018-01-04] MEDS: ciprofloxacin lact 400MG/200ML 200 ML IV SCH ×2 (07:13→22:11)
[2018-01-04] MEDS: aspirin 81mg tablet.DR PO SCH (07:14)
[2018-01-04] MEDS: heparin, porcine 5000 units/ml vial SQ SCH ×2 (07:14→21:39)
[2018-01-04] MEDS: pantoprazole 40 MG vial IV SCH ×2 (07:14→21:39)
[2018-01-04] MEDS: divalproex sod 125mg sprinkle cap PO SCH ×2 (07:14→22:11)
[2018-01-04] MEDS: calcitriol 0.25mcg capsule PO SCH (07:15)
[2018-01-04] MEDS: docusate sod 100mg capsule PO SCH ×2 (07:15→21:36)
[2018-01-04] MEDS: levetiracetam 250mg tablet PO SCH ×2 (07:15→21:35)
[2018-01-04] MEDS: lactobacillus rhamnosus 10,000 MMU CELLS/CAPSULE PO SCH ×2 (07:15→21:36)
[2018-01-04] MEDS: sennosides/docusate sodium tablet PO SCH ×2 (07:15→21:36)
[2018-01-04] MEDS: estradiol 1mg tablet PO SCH (07:15)
[2018-01-04] MEDS: fenofibrate 48mg tablet PO SCH (07:31)
[2018-01-04] MEDS: insulin Lispro (HumaLOG) vial - multi-dose SQ SCH ×4 (09:24→21:59)
[2018-01-04] MEDS: morphine/NS 100mg/100ml bag 100 ML IV SCH (11:37)
[2018-01-04 13:07] LABS: ALANINE AMINOTRANSFERASE 21 U/L (12-78); ALBUMIN 1.6 G/DL (3.4-5.0); ALBUMIN/GLOBULIN RATIO 0.3 (1.1-1.5); ALKALINE PHOSPHATASE 70 IU/L (46-116); ANION GAP 9 (8-16); ASPARTATE AMINO TRANSFERASE 27 U/L (10-37); BILIRUBIN,TOTAL 0.6 MG/DL (0.1-1.0); BLOOD UREA NITROGEN 50 MG/DL (7-18); BUN/CREATININE RATIO 39.7 (6.6-38.0); CALCIUM 8.1 MG/DL (8.5-10.1); CHLORIDE 116 MMOL/L (99-107); CREATININE 1.26 MG/DL (0.40-0.90); GLUCOSE 175 MG/DL (70-104); MAGNESIUM 2.5 MG/DL (1.5-2.4); PHOSPHORUS 3.4 MG/DL (2.3-4.5); POTASSIUM 4.9 MMOL/L (3.5-5.1); PREALBUMIN 15.1 MG/DL (19-36); SODIUM 145 MMOL/L (135-145); TOTAL CARBON DIOXIDE 20.4 MMOL/L (24-32); TOTAL PROTEIN 6.3 G/DL (6.4-8.2); eGFR 44 ML/MIN
[2018-01-04 13:23] LABS: BASOPHILS % (AUTO) 0.3 % (0-1); EOSINOPHILS % (AUTO) 0.7 % (0-6); HEMATOCRIT 29.7 % (35.0-45.0); HEMOGLOBIN 9.8 g/dl (12.0-16.0); LYMPHOCYTES # (AUTO) 0.8 X10'3 (1.1-4.8); LYMPHOCYTES % (AUTO) 12.7 % (21-51); MEAN CORPUSCULAR HEMOGLOBIN 31.9 PG (27.0-31.0); MEAN CORPUSCULAR VOLUME 96.8 FL (78-98); MEAN PLATELET VOLUME 6.2 FL (7.4-10.4); MONOCYTES # (AUTO) 0.7 X10'3 (0-0.9); MONOCYTES % (AUTO) 11.2 % (2-12); NEUTROPHILS # (AUTO) 4.9 X10'3 (1.8-7.7); NEUTROPHILS % (AUTO) 75.1 % (42-75); PLATELET COUNT 172 X10'3 (140-440); RED BLOOD COUNT 3.07 X10'6 (4.20-5.60); RED CELL DISTRIBUTION WIDTH 24.5 % (11.5-14.5); WHITE BLOOD COUNT 6.5 X10'3 (4.5-11.0)
[2018-01-04 14:23] LABS: PLATELET ESTIMATE NORMAL
[2018-01-04 14:24] LABS: ANISOCYTOSIS 3+
[2018-01-04 14:29] LABS: BURR CELLS 2+; POLYCHROMASIA FEW; SCHISTOCYTES FEW
[2018-01-04] MEDS: diphenhydrAMINE 25mg capsule PO SCH (21:36)
[2018-01-04] MEDS: normal saline 1000ml 1,000 ML IV SCH (22:00)
[2018-01-04] MEDS: insulin glargine (Lantus) pen - multi-dose SQ SCH (22:34)
[2018-01-05] MEDS: metroNIDAZOLE-Flagyl 500mg/NS 100 ML IV SCH ×3 (00:14→16:41)
[2018-01-05 02:00] VITALS: BP 120/51
[2018-01-05] MEDS: mineral oil/petrolatum ophthal oint EACHEYE SCH ×3 (02:00→14:00)
[2018-01-05] MEDS: ipratropium/albuterol 3ml nebule NEB SCH ×4 (03:00→21:00)
[2018-01-05] MEDS: phenytoin 100mg/4ml ***ORAL SUSPENSION PO SCH (03:35)
[2018-01-05 06:00] VITALS: BP 131/75
[2018-01-05 06:18] LABS: BASOPHILS % (AUTO) 0.1 % (0-1); EOSINOPHILS # (AUTO) 0.1 X10'3 (0-0.9); EOSINOPHILS % (AUTO) 1.9 % (0-6); HEMATOCRIT 31.2 % (35.0-45.0); HEMOGLOBIN 10.4 g/dl (12.0-16.0); LYMPHOCYTES # (AUTO) 0.9 X10'3 (1.1-4.8); LYMPHOCYTES % (AUTO) 15.2 % (21-51); MEAN CORPUSCULAR HEMOGLOBIN 32.3 PG (27.0-31.0); MEAN CORPUSCULAR HGB CONC 33.5 % (33.0-36.5); MEAN CORPUSCULAR VOLUME 96.7 FL (78-98); MEAN PLATELET VOLUME 6.3 FL (7.4-10.4); MONOCYTES # (AUTO) 0.9 X10'3 (0-0.9); MONOCYTES % (AUTO) 15.2 % (2-12); NEUTROPHILS % (AUTO) 67.6 % (42-75); PLATELET COUNT 200 X10'3 (140-440); RED BLOOD COUNT 3.23 X10'6 (4.20-5.60); RED CELL DISTRIBUTION WIDTH 23.2 % (11.5-14.5)
[2018-01-05 06:46] LABS: ALANINE AMINOTRANSFERASE 23 U/L (12-78); ALBUMIN 1.7 G/DL (3.4-5.0); ALBUMIN/GLOBULIN RATIO 0.4 (1.1-1.5); ALKALINE PHOSPHATASE 71 IU/L (46-116); ANION GAP 7 (8-16); ASPARTATE AMINO TRANSFERASE 30 U/L (10-37); BILIRUBIN,TOTAL 0.8 MG/DL (0.1-1.0); BLOOD UREA NITROGEN 44 MG/DL (7-18); BUN/CREATININE RATIO 36.4 (6.6-38.0); CALCIUM 8.1 MG/DL (8.5-10.1); CHLORIDE 109 MMOL/L (99-107); CREATININE 1.21 MG/DL (0.40-0.90); MAGNESIUM 2.3 MG/DL (1.5-2.4); PHOSPHORUS 3.4 MG/DL (2.3-4.5); POTASSIUM 4.9 MMOL/L (3.5-5.1); SODIUM 137 MMOL/L (135-145); TOTAL CARBON DIOXIDE 21.1 MMOL/L (24-32); TOTAL PROTEIN 6.5 G/DL (6.4-8.2); eGFR 47 ML/MIN
[2018-01-05 06:47] LABS: GLUCOSE 134 MG/DL (70-104)
[2018-01-05] MEDS: insulin Lispro (HumaLOG) vial - multi-dose SQ SCH ×4 (07:00→21:00)
[2018-01-05 07:40] LABS: WHITE BLOOD COUNT 10.1 X10'3 (4.5-11.0)
[2018-01-05] MEDS: docusate sod 100mg capsule PO SCH ×2 (08:00→20:00)
[2018-01-05] MEDS: fenofibrate 48mg tablet PO SCH (08:18)
[2018-01-05] MEDS: estradiol 1mg tablet PO SCH (08:18)
[2018-01-05] MEDS: aspirin 81mg tablet.DR PO SCH (08:18)
[2018-01-05] MEDS: levetiracetam 250mg tablet PO SCH ×2 (08:19→22:40)
[2018-01-05] MEDS: sennosides/docusate sodium tablet PO SCH ×2 (08:20→20:00)
[2018-01-05] MEDS: lactobacillus rhamnosus 10,000 MMU CELLS/CAPSULE PO SCH ×3 (08:20→20:30)
[2018-01-05] MEDS: divalproex sod 125mg sprinkle cap PO SCH ×2 (08:21→22:40)
[2018-01-05] MEDS: calcitriol 0.25mcg capsule PO SCH (08:21)
[2018-01-05] MEDS: heparin, porcine 5000 units/ml vial SQ SCH ×2 (08:23→22:42)
[2018-01-05] MEDS: pantoprazole 40 MG vial IV SCH (08:23)
[2018-01-05] MEDS: ciprofloxacin lact 400MG/200ML 200 ML IV SCH ×2 (08:44→22:36)
[2018-01-05 10:00] VITALS: BP 133/72
[2018-01-05] MEDS: normal saline 1000ml 1,000 ML IV SCH (10:40)
[2018-01-05 14:00] VITALS: BP 120/66
[2018-01-05] MEDS ORDERED: furosemide 40mg/4ml inj IV ONE (14:50)
[2018-01-05 18:00] VITALS: BP 122/49
[2018-01-05 22:00] VITALS: BP 129/80
[2018-01-05] MEDS: pantoprazole 40mg Tablet.DR PO SCH (22:37)
[2018-01-05] MEDS: diphenhydrAMINE 25mg capsule PO SCH (22:37)
[2018-01-05] MEDS: phenytoin sod ER 100mg capsule PO SCH (22:38)
[2018-01-06] MEDS: metroNIDAZOLE-Flagyl 500mg/NS 100 ML IV SCH ×3 (00:13→16:36)
[2018-01-06 02:00] VITALS: BP 124/71
[2018-01-06] MEDS: ipratropium/albuterol 3ml nebule NEB SCH ×4 (03:00→21:00)
[2018-01-06 06:00] VITALS: BP 136/61
[2018-01-06] MEDS: insulin Lispro (HumaLOG) vial - multi-dose SQ SCH ×3 (07:00→17:00)
[2018-01-06] MEDS: docusate sod 100mg capsule PO SCH ×2 (08:00→20:00)
[2018-01-06] MEDS: sennosides/docusate sodium tablet PO SCH ×2 (08:00→20:00)
[2018-01-06] MEDS: fenofibrate 48mg tablet PO SCH (08:30)
[2018-01-06] MEDS: estradiol 1mg tablet PO SCH (09:05)
[2018-01-06] MEDS: heparin, porcine 5000 units/ml vial SQ SCH ×2 (09:05→22:28)
[2018-01-06] MEDS: ciprofloxacin lact 400MG/200ML 200 ML IV SCH ×2 (09:06→20:00)
[2018-01-06] MEDS: divalproex sod 125mg sprinkle cap PO SCH ×3 (09:06→22:26)
[2018-01-06] MEDS: aspirin 81mg tablet.DR PO SCH (09:06)
[2018-01-06] MEDS: pantoprazole 40mg Tablet.DR PO SCH ×2 (09:06→22:26)
[2018-01-06] MEDS: calcitriol 0.25mcg capsule PO SCH (09:07)
[2018-01-06] MEDS: levetiracetam 250mg tablet PO SCH ×2 (09:07→22:27)
[2018-01-06] MEDS: lactobacillus rhamnosus 10,000 MMU CELLS/CAPSULE PO SCH ×2 (09:07→22:27)
[2018-01-06 11:00] VITALS: BP 128/65
[2018-01-06 11:02] LABS: ALANINE AMINOTRANSFERASE 20 U/L (12-78); ALBUMIN 1.7 G/DL (3.4-5.0); ALBUMIN/GLOBULIN RATIO 0.3 (1.1-1.5); ALKALINE PHOSPHATASE 78 IU/L (46-116); ANION GAP 9 (8-16); ASPARTATE AMINO TRANSFERASE 30 U/L (10-37); BILIRUBIN,TOTAL 0.9 MG/DL (0.1-1.0); BLOOD UREA NITROGEN 38 MG/DL (7-18); BUN/CREATININE RATIO 34.9 (6.6-38.0); CHLORIDE 101 MMOL/L (99-107); CREATININE 1.09 MG/DL (0.40-0.90); PHOSPHORUS 3.2 MG/DL (2.3-4.5); POTASSIUM 4.7 MMOL/L (3.5-5.1); SODIUM 130 MMOL/L (135-145); TOTAL CARBON DIOXIDE 20.1 MMOL/L (24-32); TOTAL PROTEIN 6.7 G/DL (6.4-8.2); eGFR 53 ML/MIN
[2018-01-06 11:06] LABS: GLUCOSE 134 MG/DL (70-104)
[2018-01-06 11:21] LABS: BASOPHILS % (AUTO) 0.1 % (0-1); EOSINOPHILS # (AUTO) 0.2 X10'3 (0-0.9); EOSINOPHILS % (AUTO) 1.4 % (0-6); HEMATOCRIT 31.4 % (35.0-45.0); HEMOGLOBIN 10.5 g/dl (12.0-16.0); LYMPHOCYTES # (AUTO) 2.1 X10'3 (1.1-4.8); MEAN CORPUSCULAR HEMOGLOBIN 31.9 PG (27.0-31.0); MEAN CORPUSCULAR HGB CONC 33.5 % (33.0-36.5); MEAN PLATELET VOLUME 6.8 FL (7.4-10.4); MONOCYTES # (AUTO) 1.2 X10'3 (0-0.9); MONOCYTES % (AUTO) 8.8 % (2-12); NEUTROPHILS # (AUTO) 10.5 X10'3 (1.8-7.7); NEUTROPHILS % (AUTO) 74.7 % (42-75); PLATELET COUNT 243 X10'3 (140-440); RED CELL DISTRIBUTION WIDTH 23.2 % (11.5-14.5); WHITE BLOOD COUNT 14.1 X10'3 (4.5-11.0)
[2018-01-06 15:00] VITALS: BP 124/60
[2018-01-06 18:00] VITALS: BP 131/81
[2018-01-06 22:00] VITALS: BP 111/63
[2018-01-06] MEDS: phenytoin sod ER 100mg capsule PO SCH (22:26)
[2018-01-06] MEDS: diphenhydrAMINE 25mg capsule PO SCH (22:26)
[2018-01-07] MEDS: metroNIDAZOLE-Flagyl 500mg/NS 100 ML IV SCH ×3 (00:58→16:29)
[2018-01-07 02:00] VITALS: BP 122/71
[2018-01-07] MEDS: ipratropium/albuterol 3ml nebule NEB SCH ×4 (03:00→21:00)
[2018-01-07 05:49] LABS: EOSINOPHILS # (AUTO) 0.3 X10'3 (0-0.9); HEMATOCRIT 30.5 % (35.0-45.0); HEMOGLOBIN 10.4 g/dl (12.0-16.0); MEAN CORPUSCULAR HEMOGLOBIN 32.1 PG (27.0-31.0); MEAN CORPUSCULAR VOLUME 94.4 FL (78-98); MEAN PLATELET VOLUME 6.3 FL (7.4-10.4); PLATELET COUNT 224 X10'3 (140-440); RED BLOOD COUNT 3.23 X10'6 (4.20-5.60); RED CELL DISTRIBUTION WIDTH 22.7 % (11.5-14.5)
[2018-01-07 06:26] LABS: ALANINE AMINOTRANSFERASE 20 U/L (12-78); ALBUMIN 1.6 G/DL (3.4-5.0); ALBUMIN/GLOBULIN RATIO 0.3 (1.1-1.5); ALKALINE PHOSPHATASE 77 IU/L (46-116); ANION GAP 10 (8-16); ASPARTATE AMINO TRANSFERASE 32 U/L (10-37); BILIRUBIN,TOTAL 0.8 MG/DL (0.1-1.0); BLOOD UREA NITROGEN 35 MG/DL (7-18); BUN/CREATININE RATIO 33.7 (6.6-38.0); CALCIUM 7.9 MG/DL (8.5-10.1); CHLORIDE 102 MMOL/L (99-107); CREATININE 1.04 MG/DL (0.40-0.90); MAGNESIUM 1.9 MG/DL (1.5-2.4); PHOSPHORUS 3.2 MG/DL (2.3-4.5); POTASSIUM 4.6 MMOL/L (3.5-5.1); SODIUM 131 MMOL/L (135-145); TOTAL CARBON DIOXIDE 19.4 MMOL/L (24-32); TOTAL PROTEIN 6.4 G/DL (6.4-8.2); eGFR 55 ML/MIN
[2018-01-07 06:38] LABS: GLUCOSE 121 MG/DL (70-104)
[2018-01-07 07:00] VITALS: BP 123/54
[2018-01-07 07:00] LABS: NEUTROPHILS % (AUTO) 70.8 % (42-75); WHITE BLOOD COUNT 12.8 X10'3 (4.5-11.0)
[2018-01-07 07:01] LABS: BASOPHILS % (AUTO) 0 % (0-1); EOSINOPHILS % (AUTO) 2.6 % (0-6); LYMPHOCYTES % (AUTO) 15.9 % (21-51); MONOCYTES # (AUTO) 1.4 X10'3 (0-0.9); MONOCYTES % (AUTO) 10.7 % (2-12); NEUTROPHILS # (AUTO) 9.1 X10'3 (1.8-7.7)
[2018-01-07] MEDS: sennosides/docusate sodium tablet PO SCH ×2 (08:00→20:00)
[2018-01-07] MEDS: lactobacillus rhamnosus 10,000 MMU CELLS/CAPSULE PO SCH ×2 (08:26→20:58)
[2018-01-07] MEDS: pantoprazole 40mg Tablet.DR PO SCH ×2 (08:26→20:59)
[2018-01-07] MEDS: calcitriol 0.25mcg capsule PO SCH (08:26)
[2018-01-07] MEDS: ciprofloxacin lact 400MG/200ML 200 ML IV SCH ×2 (08:26→20:58)
[2018-01-07] MEDS: fenofibrate 48mg tablet PO SCH (08:27)
[2018-01-07] MEDS: aspirin 81mg tablet.DR PO SCH (08:27)
[2018-01-07] MEDS: estradiol 1mg tablet PO SCH (08:27)
[2018-01-07] MEDS: heparin, porcine 5000 units/ml vial SQ SCH ×2 (08:27→20:59)
[2018-01-07] MEDS: levetiracetam 250mg tablet PO SCH ×2 (08:27→20:58)
[2018-01-07] MEDS: docusate sod 100mg capsule PO SCH ×2 (08:27→20:00)
[2018-01-07 11:00] VITALS: BP 105/66
[2018-01-07 15:00] VITALS: BP 103/76
[2018-01-07 19:00] VITALS: BP 116/63
[2018-01-07] MEDS: phenytoin sod ER 100mg capsule PO SCH (20:58)
[2018-01-07] MEDS: divalproex sod 125mg sprinkle cap PO SCH (20:58)
[2018-01-07] MEDS: diphenhydrAMINE 25mg capsule PO SCH (20:59)
[2018-01-07 23:00] VITALS: BP 112/71
[2018-01-08] VITALS (7 sets, daily range): BP systolic 96–122; BP diastolic 54–82
[2018-01-08] MEDS: metroNIDAZOLE-Flagyl 500mg/NS 100 ML IV SCH ×4 (01:09→23:56)
[2018-01-08] MEDS: ipratropium/albuterol 3ml nebule NEB SCH (03:00)
[2018-01-08 05:44] LABS: ALANINE AMINOTRANSFERASE 20 U/L (12-78); ALBUMIN 1.6 G/DL (3.4-5.0); ALBUMIN/GLOBULIN RATIO 0.3 (1.1-1.5); ALKALINE PHOSPHATASE 77 IU/L (46-116); ANION GAP 7 (8-16); ASPARTATE AMINO TRANSFERASE 29 U/L (10-37); BILIRUBIN,TOTAL 0.9 MG/DL (0.1-1.0); BLOOD UREA NITROGEN 28 MG/DL (7-18); BUN/CREATININE RATIO 27.5 (6.6-38.0); CALCIUM 7.9 MG/DL (8.5-10.1); CHLORIDE 99 MMOL/L (99-107); CREATININE 1.02 MG/DL (0.40-0.90); POTASSIUM 4.6 MMOL/L (3.5-5.1); PREALBUMIN 14.9 MG/DL (19-36); SODIUM 126 MMOL/L (135-145); TOTAL PROTEIN 6.3 G/DL (6.4-8.2); eGFR 57 ML/MIN
[2018-01-08 05:54] LABS: BASOPHILS % (AUTO) 0.3 % (0-1); EOSINOPHILS # (AUTO) 0.3 X10'3 (0-0.9); EOSINOPHILS % (AUTO) 2.3 % (0-6); HEMATOCRIT 32.6 % (35.0-45.0); LYMPHOCYTES # (AUTO) 2.5 X10'3 (1.1-4.8); LYMPHOCYTES % (AUTO) 17.9 % (21-51); MEAN CORPUSCULAR HEMOGLOBIN 31.8 PG (27.0-31.0); MEAN CORPUSCULAR HGB CONC 33.6 % (33.0-36.5); MEAN CORPUSCULAR VOLUME 94.6 FL (78-98); MEAN PLATELET VOLUME 6.8 FL (7.4-10.4); MONOCYTES # (AUTO) 1.7 X10'3 (0-0.9); MONOCYTES % (AUTO) 12.6 % (2-12); NEUTROPHILS # (AUTO) 9.2 X10'3 (1.8-7.7); NEUTROPHILS % (AUTO) 66.9 % (42-75); PLATELET COUNT 262 X10'3 (140-440); RED BLOOD COUNT 3.45 X10'6 (4.20-5.60); RED CELL DISTRIBUTION WIDTH 22.4 % (11.5-14.5); WHITE BLOOD COUNT 13.7 X10'3 (4.5-11.0)
[2018-01-08 06:00] LABS: GLUCOSE 148 MG/DL (70-104)
[2018-01-08] MEDS: ciprofloxacin lact 400MG/200ML 200 ML IV SCH ×2 (07:46→20:32)
[2018-01-08] MEDS: calcitriol 0.25mcg capsule PO SCH (07:47)
[2018-01-08] MEDS: lactobacillus rhamnosus 10,000 MMU CELLS/CAPSULE PO SCH ×2 (07:48→20:34)
[2018-01-08] MEDS: estradiol 1mg tablet PO SCH (07:48)
[2018-01-08] MEDS: divalproex sod 125mg sprinkle cap PO SCH ×2 (07:48→20:36)
[2018-01-08] MEDS: levetiracetam 250mg tablet PO SCH ×2 (07:48→20:34)
[2018-01-08] MEDS: aspirin 81mg tablet.DR PO SCH (07:48)
[2018-01-08] MEDS: pantoprazole 40mg Tablet.DR PO SCH ×2 (07:48→20:34)
[2018-01-08] MEDS: heparin, porcine 5000 units/ml vial SQ SCH ×2 (07:49→20:36)
[2018-01-08] MEDS: fenofibrate 48mg tablet PO SCH (07:49)
[2018-01-08] MEDS: docusate sod 100mg capsule PO SCH ×2 (08:00→20:00)
[2018-01-08] MEDS: sennosides/docusate sodium tablet PO SCH ×2 (08:00→20:00)
[2018-01-08] MEDS: diphenhydrAMINE 25mg capsule PO SCH (20:34)
[2018-01-08] MEDS: phenytoin sod ER 100mg capsule PO SCH (20:35)
[2018-01-09 02:00] VITALS: BP 102/69
[2018-01-09 05:30] VITALS: BP 99/57
[2018-01-09 05:30] LABS: ALANINE AMINOTRANSFERASE 20 U/L (12-78); ALBUMIN 1.7 G/DL (3.4-5.0); ALBUMIN/GLOBULIN RATIO 0.4 (1.1-1.5); ALKALINE PHOSPHATASE 86 IU/L (46-116); ANION GAP 11 (8-16); ASPARTATE AMINO TRANSFERASE 32 U/L (10-37); BILIRUBIN,TOTAL 0.9 MG/DL (0.1-1.0); BLOOD UREA NITROGEN 25 MG/DL (7-18); BUN/CREATININE RATIO 26.6 (6.6-38.0); CHLORIDE 97 MMOL/L (99-107); CREATININE 0.94 MG/DL (0.40-0.90); MAGNESIUM 1.9 MG/DL (1.5-2.4); PHOSPHORUS 2.9 MG/DL (2.3-4.5); POTASSIUM 4.7 MMOL/L (3.5-5.1); SODIUM 127 MMOL/L (135-145); TOTAL CARBON DIOXIDE 18.9 MMOL/L (24-32); TOTAL PROTEIN 6.4 G/DL (6.4-8.2); eGFR 62 ML/MIN
[2018-01-09 05:31] LABS: GLUCOSE 140 MG/DL (70-104)
[2018-01-09 05:42] LABS: BASOPHILS % (AUTO) 0.3 % (0-1); EOSINOPHILS # (AUTO) 0.3 X10'3 (0-0.9); HEMATOCRIT 33.1 % (35.0-45.0); HEMOGLOBIN 11.2 g/dl (12.0-16.0); LYMPHOCYTES # (AUTO) 2.7 X10'3 (1.1-4.8); MEAN CORPUSCULAR HEMOGLOBIN 32.1 PG (27.0-31.0); MEAN CORPUSCULAR HGB CONC 33.7 % (33.0-36.5); MEAN CORPUSCULAR VOLUME 95.3 FL (78-98); MONOCYTES % (AUTO) 13.1 % (2-12); NEUTROPHILS % (AUTO) 66.6 % (42-75); PLATELET COUNT 304 X10'3 (140-440); RED BLOOD COUNT 3.48 X10'6 (4.20-5.60); RED CELL DISTRIBUTION WIDTH 22.7 % (11.5-14.5); WHITE BLOOD COUNT 15.1 X10'3 (4.5-11.0)
[2018-01-09] MEDS: heparin, porcine 5000 units/ml vial SQ SCH (08:26)
[2018-01-09] MEDS: metroNIDAZOLE-Flagyl 500mg/NS 100 ML IV SCH (08:28)
[2018-01-09] MEDS: docusate sod 100mg capsule PO SCH (08:42)
[2018-01-09] MEDS: lactobacillus rhamnosus 10,000 MMU CELLS/CAPSULE PO SCH (08:42)
[2018-01-09] MEDS: sennosides/docusate sodium tablet PO SCH (08:42)
[2018-01-09] MEDS: levetiracetam 250mg tablet PO SCH (08:43)
[2018-01-09] MEDS: calcitriol 0.25mcg capsule PO SCH (08:43)
[2018-01-09] MEDS: fenofibrate 48mg tablet PO SCH (08:44)
[2018-01-09] MEDS: pantoprazole 40mg Tablet.DR PO SCH (08:44)
[2018-01-09] MEDS: aspirin 81mg tablet.DR PO SCH (08:44)
[2018-01-09] MEDS: divalproex sod 125mg sprinkle cap PO SCH (08:45)
[2018-01-09] MEDS: estradiol 1mg tablet PO SCH (08:46)
[2018-01-09] MEDS ORDERED: traMADol 50MG tablet PO PRN (09:45)
[2018-01-09 12:00] VITALS: BP 108/53
[2018-01-09 15:00] VITALS: BP 113/65
[2018-01-09] MEDS ORDERED: ciprofloxacin 250mg tablet PO SCH (20:00)
[2018-01-09] MEDS ORDERED: metroNIDAZOLE 500mg tablet PO SCH (20:00)
== END 2018-01-09 18:17 | DRG 711 ==
LOC: ER 16:45 → PACU 21:41 → CICU 2S 23:11 → PCU 3S 01-04 17:02
PROVIDERS: ADMIT Surgery; ATTEND Surgery
PROC: 0WPF0JZ Removal of Synthetic Substitute from Abdominal Wall, Open Approach (ICD-10-PCS; 2017-12-22)
PROC: 5A1955Z Respiratory Ventilation, Greater than 96 Consecutive Hours (ICD-10-PCS; 2017-12-22)
PROC: BW211ZZ Computerized Tomography (CT Scan) of Abdomen and Pelvis using Low Osmolar Contrast (ICD-10-PCS; 2017-12-22)
PROC: 0W9F0ZZ Drainage of Abdominal Wall, Open Approach (ICD-10-PCS; 2017-12-22)
PROC: 02HV33Z Insertion of Infusion Device into Superior Vena Cava, Percutaneous Approach (ICD-10-PCS; 2017-12-22)
PROC: 30233N1 Transfusion of Nonautologous Red Blood Cells into Peripheral Vein, Percutaneous Approach (ICD-10-PCS; 2017-12-23)
PROC: 0DB80ZZ Excision of Small Intestine, Open Approach (ICD-10-PCS; 2017-12-24)
PROC: 0D1A0ZA Bypass Jejunum to Jejunum, Open Approach (ICD-10-PCS; principal; 2017-12-26 11:55)
PROC: 0DJ08ZZ Inspection of Upper Intestinal Tract, Via Natural or Artificial Opening Endoscopic (ICD-10-PCS; 2017-12-29)
DX: T85.79XA Infection and inflammatory reaction due to other internal prosthetic devices, implants and grafts, initial encounter (principal); J96.00 Acute respiratory failure, unspecified whether with hypoxia or hypercapnia; K65.1 Peritoneal abscess; A41.9 Sepsis, unspecified organism; N17.9 Acute kidney failure, unspecified; J44.9 Chronic obstructive pulmonary disease, unspecified; K76.6 Portal hypertension; D62 Acute posthemorrhagic anemia; L02.211 Cutaneous abscess of abdominal wall; K29.70 Gastritis, unspecified, without bleeding; E11.9 Type 2 diabetes mellitus without complications; B96.20 Unspecified Escherichia coli [E. coli] as the cause of diseases classified elsewhere; D64.9 Anemia, unspecified; I10 Essential (primary) hypertension; K92.1 Melena; F31.9 Bipolar disorder, unspecified; E78.00 Pure hypercholesterolemia, unspecified; K20.9 Esophagitis, unspecified; K43.9 Ventral hernia without obstruction or gangrene; E78.5 Hyperlipidemia, unspecified; B85.0 Pediculosis due to Pediculus humanus capitis; B19.20 Unspecified viral hepatitis C without hepatic coma; E66.9 Obesity, unspecified; F41.9 Anxiety disorder, unspecified; G89.29 Other chronic pain; F17.210 Nicotine dependence, cigarettes, uncomplicated; F41.0 Panic disorder [episodic paroxysmal anxiety]; M54.9 Dorsalgia, unspecified; K66.0 Peritoneal adhesions (postprocedural) (postinfection); Y83.2 Surgical operation with anastomosis, bypass or graft as the cause of abnormal reaction of the patient, or of later complication, without mention of misadventure at the time of the procedure; K74.60 Unspecified cirrhosis of liver; Z90.49 Acquired absence of other specified parts of digestive tract; Z90.710 Acquired absence of both cervix and uterus; Z88.0 Allergy status to penicillin; Z88.1 Allergy status to other antibiotic agents; Z88.6 Allergy status to analgesic agent; Z98.891 History of uterine scar from previous surgery
CPT/HCPCS: 36415; 36600; 71045; 74177; 76775; 80048; 80053; 80185; 80202; 81001; 81003; 82272; 82570; 82803; 82948; 83605; 83735; 84100; 84132; 84134; 84145; 84300; 85018; 85025; 85027; 85610; 85730; 86885; 86900; 86901; 86920; 87040; 87070; 87075; 87076; 87077; 87185; 87186; 87207; 92616; 93005; 94002; 94003; 94640; 94760; 96361; 96365; 97110; 97162; 97530; 97535; 99291; A4315; A4421; A4649; A6212; A6213; A6253; A6255; A6257; A6258; A6446; A6449; A7000; C9113; G0500; J0744; J1100; J1644; J1815; J1940; J2001; J2020; J2250; J2270; J2704; J3010; J3370; J3486; J3490; J7030; J7120; P9016; P9045; P9047; Q0163; Q9967

== ENCOUNTER 2018-01-16 10:04 | Outpatient (CLI) | payer MEDICAID | END 2018-01-16 23:59 | disposition home or self-care (01) | LOC: 64 CT 10:04 | PROVIDERS: ATTEND Internal Medicine | DX: S31.109A Unspecified open wound of abdominal wall, unspecified quadrant without penetration into peritoneal cavity, initial encounter (principal); K74.60 Unspecified cirrhosis of liver; R16.1 Splenomegaly, not elsewhere classified; R18.8 Other ascites; Z90.49 Acquired absence of other specified parts of digestive tract; X58.XXXA Exposure to other specified factors, initial encounter; Y93.89 Activity, other specified; Y92.89 Other specified places as the place of occurrence of the external cause; Y99.8 Other external cause status | CPT/HCPCS: 74150 ==